=== PATIENT | female | born 1985 | race Hispanic/Latino ===

== ENCOUNTER 2017-08-05 17:28 | Emergency (ER) | payer OTHER ==
[2017-08-05] MEDS ORDERED: Insulin Regular 300 UNITS/3 ML VIAL ONE (17:52)
[2017-08-05 18:22] LABS: Anion Gap 8 mmol/L (-14-95); T. Carbon Dioxide 29.2 mmol/L (1.0-85.0); pH (Venous) 7.438 (7.35-7.45)
[2017-08-05 18:25] LABS: #Basophils 0.1 thou/uL (0.0-0.2); #Eosinphils 0.1 thou/uL (0.0-0.7); #Lymphocytes 2.9 thou/uL (1.20-3.40); #Monocytes 0.5 thou/uL (0.11-0.59); #Neutrophils 4.6 thou/uL (1.40-6.50); %Basophils 0.8 % (0.0-1.0); %Eosinophils 1.5 % (0.0-10.0); %Lymphocytes 35.2 % (21.0-51.0); Hematocrit 40.3 % (36.0-47.0); Mean Platelet Volume 9.4 fL (7.4-10.4); Red Blood Cell (RBC) Count 4.38 mill/uL (4.20-5.40); White Blood Cell (WBC) Count 8.1 thou/uL (4.8-10.8)
[2017-08-05 18:41] LABS: Anion Gap 14 mmol/L (10-20); BUN (Urea Nitrogen) 8 mg/dL (7.0-18.7); Calc. Creatinine Clearance 0 mL/min (70-130); Calcium 9.6 mg/dL (7.8-10.44); Carbon Dioxide 25 mmol/L (22-29); Chloride 100 mmol/L (98-107); Estimated GFR-MDRD 81; Magnesium 2.2 mg/dL (1.6-2.6); Phosphorus 3.9 mg/dL (2.3-4.7)
[2017-08-05 19:39] LABS: Bacteria/HPF 4+ HPF (None Seen); Bilirubin Negative (Negative); Blood, Urine Large (Negative); Glucose, Urine (Dipstick) >=1000 mg/dL (Negative); Hyaline Casts/LPF 0-3 HYALINE CAST LPF (0-3 Hyaline); Ketone, Urine Negative (Negative); Nitrite Negative (Negative); Protein, Urine (Dipstick) Negative (Neg-Trace); WBC/HPF 21-50 HPF (0-3)
[2017-08-05 19:49] LABS: RBC/HPF 0-3 HPF (0-3); Yeast-All Forms None Seen HPF (None Seen)
== END 2017-08-05 20:35 | disposition home or self-care (01) ==
LOC: ERS 17:28
DX: E11.65 Type 2 diabetes mellitus with hyperglycemia (principal); N39.0 Urinary tract infection, site not specified; E03.9 Hypothyroidism, unspecified; J45.909 Unspecified asthma, uncomplicated; F41.9 Anxiety disorder, unspecified; F32.9 Major depressive disorder, single episode, unspecified; Z79.899 Other long term (current) drug therapy; Z79.4 Long term (current) use of insulin
CPT/HCPCS: 36416; 80048; 81003; 81015; 82010; 82330; 82803; 83735; 84100; 85025; 96361; 96372; 96374; J1815

== ENCOUNTER 2018-02-26 10:05 | Outpatient (CLI) | payer OTHER ==
--- NOTE | 2018-02-26 11:54 | ULT ---
PELVIC SONOGRAM TRANSABDOMINAL AND TRANSVAGINAL IMAGING WITH DUPLEX EVALUATION: HISTORY: Pelvic pain and bleeding. FINDINGS: The urinary bladder is decompressed. Uterus has a heterogeneous echotexture and is 9.2 cm. Endometr ium 0.9 cm. No free fluid. Nabothian cysts arise from the uterine cervix. Right ovary not visualized with transabdominal or transvaginal imaging. Left ovary 2.8 cm with good color and spectral Doppler flow. IMPRESSION: No significant abnormalities are demonstrated. POS: MARIA D
== END 2018-02-26 10:06 | disposition home or self-care (01) ==
LOC: ULT 10:05
PROVIDERS: ATTEND Family Medicine
DX: N93.9 Abnormal uterine and vaginal bleeding, unspecified (principal)
CPT/HCPCS: 76856

== ENCOUNTER 2018-03-17 09:26 | Emergency (ER) | payer OTHER ==
[2018-03-17 10:12] LABS: #Basophils 0.1 thou/uL (0.0-0.2); #Eosinphils 0.2 thou/uL (0.0-0.7); #Lymphocytes 2.7 thou/uL (1.20-3.40); #Monocytes 0.4 thou/uL (0.11-0.59); #Neutrophils 4.6 thou/uL (1.40-6.50); %Basophils 0.7 % (0.0-1.0); %Lymphocytes 33.9 % (21.0-51.0); %Monocytes 5.4 % (0.0-10.0); Hemoglobin 13.4 g/dL (12.0-16.0); Mean Corpuscular HGB CONC 34.3 g/dL (32.0-36.0); Mean Corpuscular Hemoglobin 30.7 pg (27.0-31.0); Mean Corpuscular Volume 89.5 fL (78.0-98.0); Mean Platelet Volume 9.1 fL (7.4-10.4); Platelet Count 262 thou/uL (130-400); RBC Distribution Width 11.7 % (11.5-14.5); Red Blood Cell (RBC) Count 4.36 mill/uL (4.20-5.40)
[2018-03-17 10:24] LABS: Base Excess-Venous 0.7 mmol/L (0 (+/- 2.5)); Bicarbonate (HCO3v) 26.5 mmol/L (1.0-85.0); CO2 Tension (PvCO2) 45.6 mmHg (41.0-51.0); Hemoglobin - Calc 14.5 g/dL (12.0-18.0); O2 Tension (PvO2) 48.4 mmHg (35.0-45.0); Potassium 3.9 mmol/L (3.4-4.7); T. Carbon Dioxide 27.9 mmol/L (1.0-85.0); pH (Venous) 7.372 (7.35-7.45); vO2 Saturation-calc 82.3 % (94-98)
[2018-03-17 10:27] LABS: BHCG - Serum Negative (NEGATIVE); Pregs Control Background? CLEAR/WHITE (CLR/WHITE); Pregs Control Bar Appear? YES (CONTROL BAR)
[2018-03-17 10:37] LABS: ALT (SGPT) 12 U/L (8-55); AST (SGOT) 13 U/L (5-34); Albumin 3.9 g/dL (3.5-5.0); Alkaline Phosphatase 115 U/L (40-150); Anion Gap 12 mmol/L (10-20); BUN (Urea Nitrogen) 11 mg/dL (7.0-18.7); Bilirubin, Total 0.4 mg/dL (0.2-1.2); Calc. Creatinine Clearance 0 mL/min (70-130); Calcium 9.2 mg/dL (7.8-10.44); Carbon Dioxide 26 mmol/L (22-29); Chloride 102 mmol/L (98-107); Estimated GFR-MDRD 83; Globulin 3.2 g/dL (2.4-3.5); Glucose 460 mg/dL (70-105); Lipase 40 U/L (8-78); Magnesium 2.2 mg/dL (1.6-2.6); Potassium 4.1 mmol/L (3.5-5.1); Protein, Total 7.1 g/dL (6.0-8.3); Sodium 136 mmol/L (136-145)
[2018-03-17] MEDS ORDERED: Insulin Regular 300 UNITS/3 ML VIAL ONE (11:13)
[2018-03-17 12:37] LABS: Bilirubin Negative (Negative); Blood, Urine Negative (Negative); Clarity CLOUDY (Clear); Glucose, Urine (Dipstick) >=1000 mg/dL (Negative); Leukocyte Trace (Negative); Nitrite Negative (Negative); Protein, Urine (Dipstick) Negative (Neg-Trace); Specific Gravity, Urine 1.042 (1.002-1.036); Urobilinogen 0.2 mg/dL (0.2-1.0); pH, Urine 6.5 (5.0-9.0)
[2018-03-17 12:38] LABS: Bacteria/HPF 4+ HPF (None Seen); Hyaline Casts/LPF 0-3 HYALINE CAST LPF (0-3 Hyaline); Pathc Cast-AUWi Flag 0.14 (0-2.49); RBC/HPF 0-3 HPF (0-3); Squamous Epithelial 0-3 HPF (0-3)
== END 2018-03-17 12:59 | disposition home or self-care (01) ==
LOC: ERS 09:26
DX: E10.65 Type 1 diabetes mellitus with hyperglycemia (principal); N39.0 Urinary tract infection, site not specified; E11.9 Type 2 diabetes mellitus without complications; E03.9 Hypothyroidism, unspecified; J45.909 Unspecified asthma, uncomplicated; F41.9 Anxiety disorder, unspecified; F32.9 Major depressive disorder, single episode, unspecified; Z79.4 Long term (current) use of insulin; Z79.84 Long term (current) use of oral hypoglycemic drugs
CPT/HCPCS: 36416; 80053; 81003; 81015; 82010; 82330; 82803; 83690; 83735; 84703; 85025; 96361; 96374; J1815

== ENCOUNTER 2019-01-17 05:02 | Emergency (ER) | payer OTHER ==
[2019-01-17 05:43] LABS: #Basophils 0.1 thou/uL (0.0-0.2); #Eosinphils 0.1 thou/uL (0.0-0.7); #Lymphocytes 2.6 thou/uL (1.20-3.40); #Monocytes 0.5 thou/uL (0.11-0.59); #Neutrophils 4.9 thou/uL (1.40-6.50); %Basophils 0.8 % (0.0-1.0); %Eosinophils 1.6 % (0.0-10.0); %Lymphocytes 31.6 % (21.0-51.0); %Monocytes 5.7 % (0.0-10.0); %Neutrophils 60.3 % (42.0-75.0); Hemoglobin 13.2 g/dL (12.0-16.0); Mean Corpuscular HGB CONC 33.8 g/dL (32.0-36.0); Mean Corpuscular Hemoglobin 28.9 pg (27.0-31.0); Mean Corpuscular Volume 85.5 fL (78.0-98.0); Mean Platelet Volume 8.9 fL (7.4-10.4); Platelet Count 325 thou/uL (130-400); RBC Distribution Width 12.7 % (11.5-14.5); Red Blood Cell (RBC) Count 4.58 mill/uL (4.20-5.40); White Blood Cell (WBC) Count 8.2 thou/uL (4.8-10.8)
[2019-01-17 06:05] LABS: Bilirubin Negative (Negative); Blood, Urine Negative (Negative); Clarity CLEAR (Clear); Glucose, Urine (Dipstick) >=1000 mg/dL (Negative); Leukocyte Negative (Negative); Nitrite Positive (Negative); Protein, Urine (Dipstick) Negative (Neg-Trace)
[2019-01-17 06:08] LABS: Bacteria/HPF 3+ HPF (None Seen); Hyaline Casts/LPF 0-3 HYALINE CAST LPF (0-3 Hyaline); Pathc Cast-AUWi Flag 0.13 (0-2.49); RBC/HPF 0-3 HPF (0-3); Squamous Epithelial 0-3 HPF (0-3)
[2019-01-17 06:10] LABS: Specific Gravity, Urine 1.043 (1.002-1.036)
[2019-01-17 06:33] LABS: Anion Gap 15 mmol/L (10-20); BUN (Urea Nitrogen) 12 mg/dL (7.0-18.7); Calc. Creatinine Clearance 0 mL/min (70-130); Calcium 9.7 mg/dL (7.8-10.44); Carbon Dioxide 19 mmol/L (22-29); Chloride 105 mmol/L (98-107); Estimated GFR-MDRD Greater than 90; Glucose 326 mg/dL (70-105); Potassium 4.1 mmol/L (3.5-5.1); Sodium 135 mmol/L (136-145)
--- NOTE | 2019-01-17 08:01 | ULT ---
TRANSVAGINAL PELVIC ULTRASOUND WITH DOPPLER EVALUATION: Date: 01/17/19 INDICATION: Pelvic pain with history of . TECHNIQUE: Ortiz scale, color Doppler, and spectral Doppler images were obtained of the pelvis via a transvaginal approach. FINDINGS: Uterus measures 8.7 x 5.4 x 5.8 cm. Endometrial stripe measures 1.04 cm. No intrauterine gestation is demonstrated. Very mild free fluid is seen within the cul-de-sac. Right ovary measures 2.8 x 1.6 x 2.6 cm. Left ovary measures 3.2 x 1.9 x 3.8 cm. There is normal flow to the left ovary. Flow was difficult to document within the right ovary. IMPRESSION: No visible intrauterine gestation seen. Beta HCG is reported to be less than 1.2. This is consistent with a of undetermined location. Findings may reflect sequelae of early , missed a bortion, or ectopic . Continued clinical and sonographic follow-up is recommended. POS: SKYLAR
[2019-01-18 00:33] LABS: Chlamydia by PCR DETECTED (NotDetected); GC by PCR Not Detected (NotDetected)
== END 2019-01-17 07:18 | disposition home or self-care (01) ==
LOC: ERS 05:02
DX: N39.0 Urinary tract infection, site not specified (principal); R10.30 Lower abdominal pain, unspecified; E11.9 Type 2 diabetes mellitus without complications; E03.9 Hypothyroidism, unspecified; J45.909 Unspecified asthma, uncomplicated; F41.9 Anxiety disorder, unspecified; F32.9 Major depressive disorder, single episode, unspecified; F17.210 Nicotine dependence, cigarettes, uncomplicated; Z79.84 Long term (current) use of oral hypoglycemic drugs; Z79.899 Other long term (current) drug therapy
CPT/HCPCS: 36415; 76856; 80048; 81003; 81015; 84702; 85025; 86900; 86901; 87077; 87086; 87186; 87480; 87491; 87510; 87591; 87660

== ENCOUNTER 2019-03-14 22:06 | Emergency (ER) | payer OTHER ==
[2019-03-14 23:00] LABS: #Basophils 0.1 thou/uL (0.0-0.2); #Eosinphils 0.3 thou/uL (0.0-0.7); #Lymphocytes 3.1 thou/uL (1.20-3.40); #Monocytes 0.4 thou/uL (0.11-0.59); #Neutrophils 3.3 thou/uL (1.40-6.50); %Eosinophils 4.4 % (0.0-10.0); %Lymphocytes 42.8 % (21.0-51.0); %Monocytes 5.1 % (0.0-10.0); %Neutrophils 46.7 % (42.0-75.0); Hemoglobin 11.7 g/dL (12.0-16.0); Mean Corpuscular HGB CONC 33.9 g/dL (32.0-36.0); Mean Corpuscular Hemoglobin 28.7 pg (27.0-31.0); Mean Corpuscular Volume 84.7 fL (78.0-98.0); Mean Platelet Volume 9.2 fL (7.4-10.4); Platelet Count 277 thou/uL (130-400); Red Blood Cell (RBC) Count 4.07 mill/uL (4.20-5.40); White Blood Cell (WBC) Count 7.1 thou/uL (4.8-10.8)
[2019-03-14] MEDS ORDERED: cefTRIAXone\\ROCEPHIN 1 GM VIAL ONE (23:10)
[2019-03-14] MEDS ORDERED: Lidocaine 1% PF 5 ML VIAL ONE (23:10)
[2019-03-14 23:15] LABS: ALT (SGPT) 7 U/L (8-55); AST (SGOT) 7 U/L (5-34); Alkaline Phosphatase 64 U/L (40-150); Anion Gap 13 mmol/L (10-20); BUN (Urea Nitrogen) 10 mg/dL (7.0-18.7); Bilirubin, Total 0.6 mg/dL (0.2-1.2); Calc. Creatinine Clearance 0 mL/min (70-130); Calcium 8.7 mg/dL (7.8-10.44); Carbon Dioxide 22 mmol/L (22-29); Chloride 106 mmol/L (98-107); Estimated GFR-MDRD Greater than 90; Globulin 2.8 g/dL (2.4-3.5); Glucose 355 mg/dL (70-105); Potassium 3.5 mmol/L (3.5-5.1); Protein, Total 6.8 g/dL (6.0-8.3); Sodium 137 mmol/L (136-145)
[2019-03-14 23:16] LABS: Bilirubin Negative (Negative); Blood, Urine Negative (Negative); Clarity CLEAR (Clear); Glucose, Urine (Dipstick) >=1000 mg/dL (Negative); Leukocyte Negative (Negative); Nitrite Negative (Negative); Protein, Urine (Dipstick) Negative (Neg-Trace)
[2019-03-14 23:18] LABS: Specific Gravity, Urine 1.047 (1.002-1.036)
[2019-03-14 23:19] LABS: Pregnancy Test - Urine (BHCG) Negative (Negative); Pregu Control Background? CLEAR/WHITE (CLR/WHITE); Pregu Control Bar Appear? YES (CONTROL BAR); Specific Gravity 1.047 (1.002-1.036)
[2019-03-14] MEDS ORDERED: Azithromycin 250 MG TAB ONE (23:24)
== END 2019-03-14 23:45 | disposition home or self-care (01) ==
LOC: ERS 22:06
DX: R10.30 Lower abdominal pain, unspecified (principal); F41.9 Anxiety disorder, unspecified; F32.9 Major depressive disorder, single episode, unspecified; F17.210 Nicotine dependence, cigarettes, uncomplicated; J45.909 Unspecified asthma, uncomplicated; Z79.899 Other long term (current) drug therapy; Z79.84 Long term (current) use of oral hypoglycemic drugs
CPT/HCPCS: 36415; 80053; 81003; 81025; 85025; 96372; J0696; J2001

== ENCOUNTER 2019-04-17 05:23 | Emergency (ER) | payer OTHER ==
[2019-04-17] MEDS ORDERED: Acetaminophen 500 MG TAB ONE (05:51)
[2019-04-17 06:11] LABS: #Basophils 0.1 thou/uL (0.0-0.2); #Eosinphils 0.4 thou/uL (0.0-0.7); #Lymphocytes 3.6 thou/uL (1.20-3.40); #Monocytes 0.6 thou/uL (0.11-0.59); #Neutrophils 6.3 thou/uL (1.40-6.50); %Basophils 0.6 % (0.0-1.0); %Eosinophils 3.4 % (0.0-10.0); %Monocytes 5.1 % (0.0-10.0); %Neutrophils 57.9 % (42.0-75.0); Hemoglobin 11.1 g/dL (12.0-16.0); Mean Corpuscular HGB CONC 35.1 g/dL (32.0-36.0); Mean Corpuscular Hemoglobin 29.2 pg (27.0-31.0); Mean Corpuscular Volume 83.1 fL (78.0-98.0); Mean Platelet Volume 8.2 fL (7.4-10.4); Platelet Count 280 thou/uL (130-400); RBC Distribution Width 13.9 % (11.5-14.5); Red Blood Cell (RBC) Count 3.78 mill/uL (4.20-5.40); White Blood Cell (WBC) Count 10.9 thou/uL (4.8-10.8)
[2019-04-17 07:54] LABS: Bilirubin Negative (Negative); Blood, Urine 2+ (Negative); Clarity Clear (Clear); Glucose, Urine (Dipstick) Greater than 1000 mg/dL (Negative); Leukocyte Negative Leu/uL (Negative); Nitrite Negative (Negative); Protein, Urine (Dipstick) Negative (Neg-Trace); RBC/HPF 0-3 HPF (0-3); Squamous Epithelial 0-3 HPF (0-3); Urobilinogen Normal mg/dL (Less than 2); WBC/HPF 0-3 HPF (0-3)
[2019-04-17 07:57] LABS: Pregnancy Test - Urine (BHCG) POSITIVE (Negative); Pregu Control Background? CLEAR/WHITE (CLR/WHITE); Pregu Control Bar Appear? YES (CONTROL BAR); Specific Gravity 1.023 (1.002-1.036)
[2019-04-17 08:22] LABS: Bacteria/HPF Rare-Few HPF (None Seen)
--- NOTE | 2019-04-17 09:46 | ULT ---
OBSTETRIC ULTRASOUND: Date: 04/17/19 INDICATION: Cramping, vaginal bleeding, and positive . FINDINGS: There is a single live intrauterine gestation with cardiac activity noted at 113 beats/minute. pole is identified with a crown-rump length of 8 mm, giving an estimated gestational age of 6 weeks/5 days. Estimated due date based on ultrasound measurements is 12/06/2019. Uterus measures 10.5 x 6.8 x 6.7 cm. Right ovary measures 2.4 x 1.9 x 2.7 cm. Left ovary measures 4.5 x 1.2 x 2.4 cm. Normal flow is seen to both ovaries. There is mild free fluid. Along the inferior and posterior aspect of the gestational sac, there is a suspected perigestational hemorrhage measuring approximately 2.8 cm. The hemorrhage does occupy less than 25% of the circumfere nce of the gestational sac. IMPRESSION: Single live intrauterine gestation with perigestational hemorrhage. Close clinical and sonographic fo llow-up is recommended. POS: SKYLAR
== END 2019-04-17 07:45 | disposition home or self-care (01) ==
LOC: ERS 05:23
DX: O20.0 Threatened abortion (principal); O99.284 Endocrine, nutritional and metabolic diseases complicating childbirth; E78.5 Hyperlipidemia, unspecified; O24.911 Unspecified diabetes mellitus in pregnancy, first trimester; E03.9 Hypothyroidism, unspecified; O99.511 Diseases of the respiratory system complicating pregnancy, first trimester; J45.909 Unspecified asthma, uncomplicated; O99.341 Other mental disorders complicating pregnancy, first trimester; F41.9 Anxiety disorder, unspecified; F32.9 Major depressive disorder, single episode, unspecified; O99.331 Smoking (tobacco) complicating pregnancy, first trimester; F17.210 Nicotine dependence, cigarettes, uncomplicated; Z79.899 Other long term (current) drug therapy; Z79.84 Long term (current) use of oral hypoglycemic drugs; Z3A.01 Less than 8 weeks gestation of pregnancy
CPT/HCPCS: 36415; 76856; 81003; 81015; 81025; 84702; 85025; 86900; 86901

== ENCOUNTER 2019-05-05 19:22 | Inpatient (IN) | payer OTHER ==
[2019-05-05] MEDS ORDERED: Acetaminophen 325 MG TAB PO PRN (22:11)
[2019-05-05] MEDS ORDERED: Dextrose 50% Abboject 50 ML SYRINGE SLOW IVP PRN (22:11)
[2019-05-05] MEDS ORDERED: Ondansetron ODT 4 MG TAB PO PRN (22:11)
[2019-05-05] MEDS ORDERED: Senokot S 8.6-50 MG TAB PO PRN (22:11)
[2019-05-05] MEDS ORDERED: HumaLOG 300 UNITS/3 ML VIAL SC PRN ×2 (22:11)
[2019-05-05] MEDS ORDERED: Dextrose 5% in Water 1,000 ML IV PRN (22:11)
[2019-05-05 22:23] VITALS: BMI 35.7
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
[2019-05-05 23:14] LABS: #Basophils 0.1 thou/uL (0.0-0.2); #Eosinphils 0.3 thou/uL (0.0-0.7); #Monocytes 0.5 thou/uL (0.11-0.59); #Neutrophils 4.4 thou/uL (1.40-6.50); %Basophils 1.2 % (0.0-1.0); %Eosinophils 3.5 % (0.0-10.0); %Lymphocytes 36.3 % (21.0-51.0); %Monocytes 5.8 % (0.0-10.0); %Neutrophils 53.2 % (42.0-75.0); Hemoglobin 11.3 g/dL (12.0-16.0); Mean Corpuscular HGB CONC 33.5 g/dL (32.0-36.0); Mean Corpuscular Hemoglobin 28.5 pg (27.0-31.0); Mean Platelet Volume 8.5 fL (7.4-10.4); Platelet Count 307 thou/uL (130-400); RBC Distribution Width 14.4 % (11.5-14.5); Red Blood Cell (RBC) Count 3.96 mill/uL (4.20-5.40); White Blood Cell (WBC) Count 8.4 thou/uL (4.8-10.8)
[2019-05-05] MEDS ORDERED: Insulin Glargine 35 UNITS in Pre-Filled Syringe 1 EACH SC SCH (23:15)
[2019-05-05 23:33] LABS: ALT (SGPT) Less than 7 U/L (8-55); AST (SGOT) 9 U/L (5-34); Albumin 3.7 g/dL (3.5-5.0); Alkaline Phosphatase 65 U/L (40-150); Anion Gap 15 mmol/L (10-20); BUN (Urea Nitrogen) 10 mg/dL (7.0-18.7); Bilirubin, Total 0.4 mg/dL (0.2-1.2); Calc. Creatinine Clearance 171 mL/min (70-130); Calcium 8.6 mg/dL (7.8-10.44); Carbon Dioxide 16 mmol/L (22-29); Chloride 105 mmol/L (98-107); Estimated GFR-MDRD Greater than 90; Globulin 2.8 g/dL (2.4-3.5); Glucose 276 mg/dL (70-105); Potassium 3.5 mmol/L (3.5-5.1); Protein, Total 6.5 g/dL (6.0-8.3); Sodium 132 mmol/L (136-145)
[2019-05-05 23:45] LABS: HBSAg Index 0.37 S/CO (0-0.99); Hep B Surf Ag Non-Reactive S/CO (NonReactive)
[2019-05-05 23:45] LABS: Thyroid Stimulating Hormone 4.3757 uIU/mL (0.35-4.94)
[2019-05-05 23:49] LABS: Hep C IgG Ab Non-Reactive (NonReactive); Hep C Index 0.04 S/CO (0-0.79)
[2019-05-05 23:51] LABS: HIV (1/2) Antibody/Antigen Non-Reactive (NonReactive); HIV 1/2 INDEX 0.07 S/CO (<1.00); Syphilis Antibody Nonreactive (Nonreactive); Syphilis Antibody Index 0.05 S/CO (<1.00 Non-Reactive)
--- NOTE | 2019-05-06 06:56 | PDOC.FM ---
- Objective MAR Reviewed: Yes Vital Signs & Weight: Vital Signs (12 hours) Temp Pulse Resp BP Pulse Ox 05/06/19 04:00 98.1 F 99 16 106/71 99 05/06/19 00:11 98 F 105 H 18 100/66 99 05/05/19 22:11 99 05/05/19 20:31 97.9 F 116 H 16 119/77 100 Weight Weight 91.58 kg Result Diagrams: 05/05/19 22:56 05/05/19 22:56 Dx/Plan (1) Status: Acute (2) Anxiety and depression Status: Chronic (3) Diabetes mellitus type 2, insulin dependent Code(s): E11.9 - TYPE 2 DIABETES MELLITUS WITHOUT COMPLICATIONS; Z79.4 - PATCHER HELPER (CURRENT) USE OF INSULIN Status: Chronic (4) Hypothyroidism Code(s): E03.9 - HYPOTHYROIDISM, UNSPECIFIED Status: Chronic Qualifiers: Hypothyroidism type: unspecified Qualified Code(s): E03.9 - Hypothyroidism , unspecified - Plan Plan: This is a 33 yo at 9.3 by 6.5 wk US with PMH of IDDM 2, hypothyroidism, depression, asthma
[2019-05-06 07:41] LABS: Hemoglobin A1c 9.9 % (4.0-6.0)
[2019-05-06] MEDS ORDERED: HumaLOG 300 UNITS/3 ML VIAL SC SCH ×3 (08:00→17:00)
[2019-05-06] MEDS ORDERED: Famotidine 20 MG TAB PO SCH (09:00)
--- NOTE | 2019-05-06 09:33 | ULT ---
Exam: Pelvic ultrasound HISTORY: Uncontrolled blood sugar the patient with positive . COMPARISON: 04/17/2019 TECHNIQUE: Multiple grayscale and color Doppler images were obtained in a transabdominal and transvag inal pelvic ultrasound. Spectral analysis of the Doppler waveforms of the ovaries were performed. FINDINGS: As noted on the prior examination, there is a fluid collection in the endometrial canal which contain s a pole. The crown-rump length measures 1.97 cm corresponding to gestational age by ultrasound of 8 weeks and 4 days. There has been interval growth since prior examination where the cr own-rump length measured 0.7 cm corresponding to gestational age of 6 weeks and 4 days. Cardiac Doppler was performed, but heart tones are unable to be detected. However, this may be a factor of continuous patient movement and inability of the patient to remain stationary to obtain adequate evaluation of heart tones. There is a small curvilinear subchorionic hypoechoic area measuring 2.4 cm x 0.4 cm likely due to a s mall subchorionic hemorrhage. No free fluid is present. RIGHT OVARY: Normal flow, without focal mass. LEFT OVARY: Normal flow, without focal mass. IMPRESSION: 1. Single intrauterine gestation with gestational age by measurement of the crown-rump length of 8 we eks and 4 days. As noted above, heart tones were unable to be detected. This may be a factor of patient's inability to remain stationary due to current clinical condition limiting adequate evalu ation of heart tones. Short interval follow-up is recommended in an attempt to obtain heart tones. 2. Small subchorionic hemorrhage. Continued follow-up is recommended. 3. Above findings were discussed with Becky, nurse on the hospital floor on 05/06/2019 at 0914 kristina rs. Short interval follow-up exam is recommended in an attempt to obtain heart tones if the patient is able to remain stationary for adequate evaluation.
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
--- NOTE | 2019-05-06 10:43 | ULT ---
Exam: Limited pelvic ultrasound HISTORY: Unable to detect heart tones on prior ultrasound. This is a follow-up examination. COMPARISON: Study obtained on 05/06/2019 at 0800 hours. TECHNIQUE: Endovaginal sonographic images of the pelvis are obtained. FINDINGS: As noted on the recent exam obtained on today's date, there is a fluid collection within the endometr ial canal which contains both a pole and a yolk sac. Cardiac Doppler was performed, but no heart tones are detected based on transvaginal imaging. IMPRESSION: heart tones are unable to be detected within the pole on transvaginal imaging suggesting demise. Findings were discussed with Becky, nurse in charge of the patient's hospital care on the hospital floor on 05/06/2019 at 1041 hours.
[2019-05-06] MEDS ORDERED: Albuterol Sulfate 1.25 MG/3 ML NEB NEB PRN (10:45)
[2019-05-06 14:03] LABS: Cardiac Risk 3.5 (Less than 4.5)
[2019-05-06 16:03] VITALS: BP 102/69; TEMP 98.3
[2019-05-06] MEDS ORDERED: Insulin Glargine 35 UNITS in Pre-Filled Syringe 1 EACH SC SCH (21:00)
[2019-05-06] MEDS ORDERED: Insulin Glargine 45 UNITS in Pre-Filled Syringe 1 EACH SC SCH (21:00)
[2019-05-07 00:18] LABS: Chlam.trachomatis by PCR,Urine Not Detected (NotDetected)
[2019-05-07] MEDS ORDERED: Levothyroxine 150 MCG TAB PO SCH (06:00)
[2019-05-07] MEDS ORDERED: HumaLOG 300 UNITS/3 ML VIAL SC SCH (09:00)
[2019-05-07] MEDS ORDERED: Folic Acid 1 MG TAB PO SCH (09:00)
[2019-05-07] MEDS ORDERED: Prenatal Vitamin 1 TAB PO SCH (09:00)
--- NOTE | 2019-05-07 10:58 | DIS ---
DATE OF ADMISSION: 05/05/2019 DATE OF DISCHARGE: 05/06/2019 RESIDENT: Lonnie Roberson MD. ADMITTING PHYSICIAN: Kirill Huff MD. CONSULTS: None. PROCEDURES: Transvaginal ultrasound x2 showing no heartbeat. Estimated gestational age of 8 weeks and 4 days. The radiographers were able to compare a 6 weeks and 4 day ultrasound, which they had available apparently from an ER visit. PRIMARY DIAGNOSIS: Incomplete miscarriage. SECONDARY DIAGNOSES: 1. Uncontrolled diabetes mellitus, type 2. 2. Depression. 3. Social discord. 4. Hypothyroidism. DISCHARGE MEDICATIONS: 1. Lantus 45 units nightly. 2. NovoLog 10 units at each meal. 3. Synthroid 150 mcg daily. 4. Zoloft 100 mg daily. 5. vitamin. 6. Albuterol p.r.n. HISTORY OF PRESENT ILLNESS/HOSPITAL COURSE: This is a 33-year-old female who was direct admitted from clinic for management of uncontrolled diabetes mellitus affecting . Upon admission, her glucose was found to be 276. She stated that she had not been taking her insulin for 1-2 months because "she did not have enough energy to take it. She denies any nausea, vomiting, diarrhea, or headache. She was tolerating p.o. intake. She stated she was quite depressed, because the father of the baby had recently left her when he found out that she was . She is now living alone with her kids and no job. She states that she does have safe housing. She lives at the [facility]. She states that she does have adequate food at home. She was evaluated by case management as well for whom she also stated that she had adequate food available at home. The 2 transvaginal ultrasounds were completed, another showed heart tones. The patient was told that she was having an incomplete miscarriage based on these 2 ultrasounds compared to prior ultrasound examination. The patient stated that she was not feeling ready for medication management of the miscarriages yet. She wanted to pursue expectant management and follow up in clinic on Thursday. Risks of bleeding and infection were discussed with her. She was instructed to return to the hospital or call the clinic phone number, which was given to her should she start having excessive cramping, bleeding, or fever. Patient is in agreement with this plan after going home. The patient denied suicidal ideation. She denied homicidal ideation. She stated that she was going to continue to care for the kids and that she had the willpower to do that. She stated that she would follow up in clinic on Thursday with behavioral health specialist, an appointment was made for her Thursday morning. The patient was sent home on an insulin regimen of Lantus 45 nightly as well as NovoLog 10 units at each meal. She stated that this was an easy regimen and that she would be able to handle this regimen. The importance of taking her insulin as prescribed was explained at length. The patient says that she did have a glucometer at home to check her blood sugar. She said she would follow up in clinic for further titration of her insulin as needed. DISPOSITION: Stable. DISCHARGE INSTRUCTIONS: Location: Home. Diet: Diabetic. Activity: As tolerated. FOLLOWUP: Follow up in clinic on Thursday for data transcriber appointment for evaluation of mental health and assistance with coping with miscarriage. The patient also needs to follow up on diabetic management as well as medical management of miscarriage. The possibility of D and C was discussed with the patient as well as the risks bearing in mind her multiple C-sections. Job ID: [id number] [facility]
== END 2019-05-06 18:56 | disposition home or self-care (01) | DRG 833 ==
LOC: SURG A 20:07
PROVIDERS: ADMIT Emergency Medicine; ATTEND Emergency Medicine
DX: O24.111 Pre-existing type 2 diabetes mellitus, in pregnancy, first trimester (principal); E11.65 Type 2 diabetes mellitus with hyperglycemia; O99.281 Endocrine, nutritional and metabolic diseases complicating pregnancy, first trimester; O99.341 Other mental disorders complicating pregnancy, first trimester; Z3A.09 9 weeks gestation of pregnancy; F41.9 Anxiety disorder, unspecified; F32.9 Major depressive disorder, single episode, unspecified; E03.9 Hypothyroidism, unspecified; O99.511 Diseases of the respiratory system complicating pregnancy, first trimester; J45.909 Unspecified asthma, uncomplicated; O99.211 Obesity complicating pregnancy, first trimester; E66.9 Obesity, unspecified; Z79.4 Long term (current) use of insulin
CPT/HCPCS: 36415; 36416; 76856; 80053; 80061; 83036; 84439; 84443; 84481; 84702; 85025; 86762; 86780; 86803; 86850; 86900; 86901; 87340; 87389; 87491; 87591; J1815

== ENCOUNTER 2019-05-11 20:21 | Day surgery (SDC) | payer OTHER ==
[2019-05-11 21:24] VITALS: BMI 35.6
[2019-05-11] MEDS ORDERED: Morphine 4 MG/ML VIAL SLOW IVP PRN (21:45)
[2019-05-11] MEDS ORDERED: Lactated Ringer's 1,000 ML IV SCH (22:15)
[2019-05-11 22:33] LABS: #Basophils 0.1 thou/uL (0.0-0.2); #Eosinphils 0.2 thou/uL (0.0-0.7); #Lymphocytes 3.9 thou/uL (1.20-3.40); #Monocytes 0.6 thou/uL (0.11-0.59); #Neutrophils 6.7 thou/uL (1.40-6.50); %Basophils 0.5 % (0.0-1.0); %Eosinophils 1.6 % (0.0-10.0); %Lymphocytes 33.9 % (21.0-51.0); %Monocytes 5.4 % (0.0-10.0); %Neutrophils 58.6 % (42.0-75.0); Hemoglobin 11.5 g/dL (12.0-16.0); Mean Corpuscular HGB CONC 34.7 g/dL (32.0-36.0); Mean Corpuscular Volume 83.4 fL (78.0-98.0); Mean Platelet Volume 8.1 fL (7.4-10.4); Platelet Count 346 thou/uL (130-400); RBC Distribution Width 14.4 % (11.5-14.5); Red Blood Cell (RBC) Count 3.95 mill/uL (4.20-5.40); White Blood Cell (WBC) Count 11.4 thou/uL (4.8-10.8)
[2019-05-11 22:55] LABS: ALT (SGPT) 7 U/L (8-55); AST (SGOT) 9 U/L (5-34); Albumin 4.1 g/dL (3.5-5.0); Alkaline Phosphatase 54 U/L (40-150); Anion Gap 13 mmol/L (10-20); BUN (Urea Nitrogen) 9 mg/dL (7.0-18.7); Bilirubin, Total 1.1 mg/dL (0.2-1.2); Calc. Creatinine Clearance 197 mL/min (70-130); Calcium 9.1 mg/dL (7.8-10.44); Carbon Dioxide 21 mmol/L (22-29); Chloride 104 mmol/L (98-107); Estimated GFR-MDRD Greater than 90; Globulin 2.7 g/dL (2.4-3.5); Glucose 138 mg/dL (70-105); Potassium 3.6 mmol/L (3.5-5.1); Protein, Total 6.8 g/dL (6.0-8.3); Sodium 134 mmol/L (136-145)
--- NOTE | 2019-05-11 23:19 | PDOC.FPRHP ---
- History of Present Illness Chief Complaint: abd pain History of Present Illness: Pt presents to l&d after being sent to labor and delivery from ER for evaluation of abd pain. Pt reports abd pain started earlier today and is diffuse , sharp, without localizing symptoms. Denies associated NVDC, fever, chills, vaginal bleeding, discharge. Pt was recently seen for IUP; however, imaging at that time did not identify any heart beat. ED Course: Sent to labor and delivery - Allergies/Adverse Reactions Allergies Allergy/AdvReac Type Severity Reaction Status Date / Time cefazolin sodium [From Ancef] Allergy Verified 05/11/19 21:24 zolmitriptan [From Zomig] Allergy THROAT Verified 05/11/19 21:24 SWELLING ANESTHETIC Allergy Intermediate Hives Uncoded 05/11/19 21:24 - Home Medications Medication Instructions Recorded Confirmed Type Acetaminophen [Tylenol Regular 650 mg PO Q4H PRN tab 05/06/19 Rx Strength] Albuterol Sulfate 1.25 mg NEB Q8H PRN 30 Days #90 neb 05/06/19 Rx Insulin Aspart [Novolog Flexpen] 10 units SC TID-WM 30 Days 05/06/19 Rx insuln.pen Insulin Glargine,Hum.Rec.Anlog 45 unit SQ QPM 30 Days #1 vial 05/06/19 Rx [Lantus] Levothyroxine [Synthroid] 150 mcg PO DAILY 30 Days #30 tab 05/06/19 Rx Vitamin 1 tab PO DAILY 30 Days #30 tab 05/06/19 Rx Sertraline HCl [Zoloft] 100 mg PO DAILY 30 Days #30 tab 05/06/19 Rx Ibuprofen 800 mg PO Q8HR #20 tablet 05/12/19 Rx Misoprostol [Cytotec] 200 mcg PO ONE #3 tab 05/12/19 Rx - History PMHx: DMII PSHx: None FHx: NA Social: Nonsmoker, nondrinker, denies drug use - Review of Systems General: denies: fever/chills, fatigue Eyes: denies: vision changes Respiratory: denies: cough, shortness of breath Cardiovascular: denies: chest pain Gastrointestinal: reports: abdominal pain. denies: nausea, vomiting, diarrhea, constipation, GI bleeding Genitourinary: denies: incontinence, dysuria, discharge Skin: denies: rashes Musculoskeletal: denies: pain Neurological: denies: numbness, syncope Psychological: reports: anxiety, depression - Vital signs BP: [] HR: [] RR: [] Tmax: [] Pox: []% on [] Wt: [] - Physical Exam Constitutional: NAD, awake, alert and oriented HEENT: normocephalic and atraumatic, PERRLA, EOMI, conjunctiva clear, no scleral icterus, grossly normal hearing, MMM Neck: trachea midline, no LAD Heart: RRR, normal S1/S2, no murmurs/rubs/gallops, pulses present, no edema Lungs: CTAB, no respiratory distress, good air movement, no rales/rhonchi, no wheezing Abdomen: soft, bowel sounds present, other (diffusely tender to palpation) Neurological: no focal deficit Skin: no rash/lesions, good turgor Heme/Lymphatic: no petechia Psychiatric: normal mood and affect FMR H&P: Results - Labs Result Diagrams: 05/11/19 22:26 05/11/19 22:26 Lab results: WBC 11.4 thou/uL (4.8-10.8) H 05/11/19 22:26 Hgb 11.5 g/dL (12.0-16.0) L 05/11/19 22:26 Hct 33.0 % (36.0-47.0) L 05/11/19 22:26 MCV 83.4 fL (78.0-98.0) 05/11/19 22:26 Plt Count 346 thou/uL (130-400) 05/11/19 22:26 Neutrophils % 58.6 % (42.0-75.0) 05/11/19 22:26 Sodium 134 mmol/L (136-145) L 05/11/19 22:26 Potassium 3.6 mmol/L (3.5-5.1) 05/11/19 22:26 Chloride 104 mmol/L (98-107) 05/11/19 22:26 Carbon Dioxide 21 mmol/L (22-29) L 05/11/19 22:26 BUN 9 mg/dL (7.0-18.7) 05/11/19 22:26 Creatinine 0.58 mg/dL (0.6-1.1) L 05/11/19 22:26 Glucose 138 mg/dL (70-105) H 05/11/19 22: Calcium 9.1 mg/dL (7.8-10.44) 05/11/19 22: Total Bilirubin 1.1 mg/dL (0.2-1.2) 05/11/19 22:26 AST 9 U/L (5-34) 05/11/19 22: ALT 7 U/L (8-55) L 05/11/19 22: Alkaline Phosphatase 54 U/L (40-150) 05/11/19 22: Serum Total Protein 6.8 g/dL (6.0-8.3) 05/11/19: Albumin 4.1 g/dL (3.5-5.0) 05/11/19 22: - Radiology Interpretation Other Status: report reviewed by me ( pole measuring 8.4 week w/o heart tones, unchanged from prior exam) FMR H&P: A/P - Problem List (1) Missed Status: Acute Code(s): O02.1 - MISSED - Plan 1) Missed - pt has not passed products of conception - afebrile and labs w/in normal limits - pain resolved after re-assessment - will rx cytotec for missed ab and ibuprofen for pain control - dc to home with instruction to f/u with [facility] closely. Disposition/LOS: Stable. Pt discharged to home. FMR H&P: Upper Level - Plan Date/Time: 05/11/19 0909 I, [], have evaluated this patient and agree with findings/plan as outlined by internet sales consultant resident. Pertinent changes/additions are listed here. Addendum - Attending - Attending Attestation Date/Time: 05/12/19 1648 I personally evaluated the patient and discussed the management with Dr. Jhaveri on 05/11. I agree with the History, Examination, Assessment and Plan documented above with any addition or exceptions noted below. Patient presented extremely tearfully to the ER and was sent to [facility] d/t a miscommunication about EDC. I am very familiar with her from our clinic. She has had a hard time accepting the dx of missed AB, and has had some cramping over the last 12 hours. She denies fever, chills, or bleeding. BS+, NTTP, no guarding/rigidity/rovsings/psoas/etc. Repeat sono with no CA and no motion artifact on this exam again confirms diagnosis. We again discussed options and she elects for pharmacologic management. I have personally discussed return precautions for excessive bleeding or fever. I have also discussed D&C and that this may be necessary if pharmacologic management fails.
--- NOTE | 2019-05-12 00:03 | ULT ---
EXAM: US Pelvic Limited DATE: 05/11/2019 9:56 PM INDICATION: Follow-up demise and pelvic pain COMPARISON: Prior exam dated May 06, 2019 FINDING: Again seen is an intrauterine gestational sac with associated pole. There are no asso ciated heart tones demonstrated with a pole. The crown-rump length is 2.01 cm giving an estimated gestational age of 8 weeks 4 days. The clinical dates was 10 weeks and 1 day with estimated 12/06/2019. IMPRESSION:No demonstratable heart tones are seen with a pole consistent with demis e.
--- NOTE | 2019-05-12 00:39 | PDOC.EVN ---
Event Note - Event Note Event Note: Labs and vitals WNL. TV US confirms IU demise. Plan for DC to home and f/ u with [facility] by Thursday. Rx cytotec for missed AB and ibuprofen for pain control. Return precautions provided and med instructions provided. Addendum - Attending - Attending Attestation Date/Time: 05/12/19 0159 I personally evaluated the patient and discussed the management with Dr. Sampson. I agree with the History, Examination, Assessment and Plan documented above with any addition or exceptions noted below.
== END 2019-05-12 00:45 | disposition home or self-care (01) ==
LOC: L&D/OP 20:21
PROVIDERS: ATTEND Family Medicine
DX: O02.1 Missed abortion (principal); Z79.4 Long term (current) use of insulin; Z79.899 Other long term (current) drug therapy; Z88.8 Allergy status to other drugs, medicaments and biological substances
CPT/HCPCS: 36415; 36416; 76857; 80053; 85025; 96360; 96375; 99282; J2270

== ENCOUNTER 2019-05-22 16:20 | Observation (INO) | payer OTHER ==
[2019-05-22] MEDS ORDERED: Morphine 4 MG/ML VIAL ONE (16:43)
[2019-05-22] MEDS ORDERED: Ondansetron PF 4 MG/2 ML Vial ONE (16:43)
[2019-05-22 16:49] LABS: #Basophils 0.1 thou/uL (0.0-0.2); #Eosinphils 0.2 thou/uL (0.0-0.7); #Lymphocytes 4.4 thou/uL (1.20-3.40); #Monocytes 0.7 thou/uL (0.11-0.59); #Neutrophils 8.7 thou/uL (1.40-6.50); %Basophils 0.8 % (0.0-1.0); %Eosinophils 1.8 % (0.0-10.0); %Lymphocytes 31.2 % (21.0-51.0); %Monocytes 4.6 % (0.0-10.0); %Neutrophils 61.6 % (42.0-75.0); Hemoglobin 12.6 g/dL (12.0-16.0); Mean Corpuscular HGB CONC 35.1 g/dL (32.0-36.0); Mean Corpuscular Hemoglobin 28.8 pg (27.0-31.0); Mean Corpuscular Volume 81.9 fL (78.0-98.0); Mean Platelet Volume 9.1 fL (7.4-10.4); Platelet Count 314 thou/uL (130-400); RBC Distribution Width 14.4 % (11.5-14.5); Red Blood Cell (RBC) Count 4.37 mill/uL (4.20-5.40); White Blood Cell (WBC) Count 14.1 thou/uL (4.8-10.8)
[2019-05-22 17:08] LABS: ALT (SGPT) 9 U/L (8-55); AST (SGOT) 10 U/L (5-34); Albumin 4.2 g/dL (3.5-5.0); Alkaline Phosphatase 50 U/L (40-150); Anion Gap 16 mmol/L (10-20); BUN (Urea Nitrogen) 13 mg/dL (7.0-18.7); Bilirubin, Total 0.7 mg/dL (0.2-1.2); Calc. Creatinine Clearance 0 mL/min (70-130); Calcium 9.7 mg/dL (7.8-10.44); Carbon Dioxide 17 mmol/L (22-29); Chloride 105 mmol/L (98-107); Estimated GFR-MDRD 64; Globulin 2.8 g/dL (2.4-3.5); Glucose 416 mg/dL (70-105); Potassium 3.9 mmol/L (3.5-5.1); Sodium 134 mmol/L (136-145)
[2019-05-22] MEDS ORDERED: Fentanyl 100 MCG/2 ML VIAL ONE ×4 (17:32→23:48)
--- NOTE | 2019-05-22 18:45 | ULT ---
TRANSABDOMINAL AND TRANSVAGINAL PELVIC ULTRASOUND WITH GRAYSCALE, COLOR FLOW, AND SPECTRAL DOPPLER IM AGING: History: 33-year-old female with spontaneous miscarriage. Patient is actively bleeding. FINDINGS: The uterus measures 11.5 x 5.1 x 7.1 cm without focal mass or endometrial fluid. The endometrium rekha ures 1.4 cm in thickness. The right ovary is not visualized. The left ovary measures 2.5 x 1.5 x 1.5 cm. Flow is demonstrated to the left ovary. No free fluid is seen. No adnexal masses are identified. Exam is limited due to patient refusing completion of the exam. IMPRESSION: No significant abnormalities are seen. POS: [facility]
--- NOTE | 2019-05-22 19:44 | CT ---
CT BRAIN WITHOUT CONTRAST: History: Lightheadedness, anxiety attack, fall in the shower. No loss of consciousness from fall. FINDINGS: Comparison made with exam of 06-27-15. No evidence of acute infarct, hemorrhage, midline shift, or abnormal extraaxial fluid collections are seen. The ventricular size is normal and the basilar cisterns are patent. The bony calvarium is inta ct. The visualized paranasal sinuses and mastoid air cells are well aerated. IMPRESSION: No CT evidence of acute intracranial process. POS: [facility]
--- NOTE | 2019-05-22 19:52 | CT ---
CT CERVICAL SPINE WITH CORONAL AND SAGITTAL REFORMATIONS: History: Fall, neck pain. FINDINGS/IMPRESSION: Cervical lordosis is maintained. No acute fracture, subluxation or facet malalignment is seen. POS: [facility]
[2019-05-22] MEDS ORDERED: Lorazepam 2 MG/ML VIAL ONE (21:00)
[2019-05-22] MEDS ORDERED: Ketorolac Tromethamine 30 MG/ML VIAL ONE (21:00)
[2019-05-22] MEDS ORDERED: Midazolam HCl 2 mg/2 ml Vial ONE (23:48)
[2019-05-22] MEDS ORDERED: HYDROmorphone 0.5 MG/0.5 ML SYRINGE ONE (23:48)
[2019-05-22] MEDS ORDERED: Promethazine HCl 25 MG/ML VIAL ONE (23:49)
[2019-05-22] MEDS ORDERED: Dextrose 5% in Water 1,000 ML IV PRN (23:57)
[2019-05-22] MEDS ORDERED: Dextrose 50% Abboject 50 ML SYRINGE SLOW IVP PRN (23:57)
[2019-05-23] MEDS ORDERED: Silver Nitrate Application 1 EACH ONE (00:32)
[2019-05-23] MEDS ORDERED: Ondansetron HCl/PF 4 MG/2 ML Vial IVP PRN (00:47)
[2019-05-23] MEDS ORDERED: Promethazine HCl 25 MG/ML VIAL SLOW IVP PRN (00:47)
[2019-05-23] MEDS ORDERED: Promethazine HCl 25 MG/ML VIAL IM PRN (00:47)
[2019-05-23] MEDS ORDERED: Ondansetron PF 4 MG/2 ML Vial IVP PRN (00:50)
[2019-05-23] MEDS ORDERED: traMADol HCl 50 MG TAB PO PRN (00:54)
[2019-05-23] MEDS ORDERED: Ibuprofen 600 MG TAB PO PRN (00:56)
[2019-05-23] MEDS ORDERED: Lactated Ringer's 1,000 ML IV SCH (01:00)
[2019-05-23 05:20] LABS: Hemoglobin 8.7 g/dL (12.0-16.0); Mean Corpuscular HGB CONC 34.1 g/dL (32.0-36.0); Mean Corpuscular Hemoglobin 29.2 pg (27.0-31.0); Mean Corpuscular Volume 85.5 fL (78.0-98.0); Mean Platelet Volume 8.9 fL (7.4-10.4); Platelet Count 218 thou/uL (130-400); Red Blood Cell (RBC) Count 2.98 mill/uL (4.20-5.40); White Blood Cell (WBC) Count 12.1 thou/uL (4.8-10.8)
[2019-05-23] MEDS ORDERED: Levothyroxine 150 MCG TAB PO SCH (06:00)
[2019-05-23] MEDS ORDERED: Lidocaine 1% PF 5 ML VIAL ONE (07:47)
[2019-05-23] MEDS ORDERED: Ondansetron PF 4 MG/2 ML Vial ONE (07:47)
[2019-05-23] MEDS ORDERED: PROPOFOL 200 MG/20 ML VIAL ONE (07:47)
[2019-05-23] MEDS ORDERED: PHENYLEPHRINE-NS 100 MCG/ML 10 ML SYRINGE ONE (07:47)
[2019-05-23] MEDS ORDERED: Ketorolac Tromethamine 30 MG/ML VIAL ONE (07:47)
[2019-05-23] MEDS ORDERED: metFORMIN 500 MG TAB PO SCH (08:00)
--- NOTE | 2019-05-23 08:08 | PDOC.FM ---
- Subjective Subjective: Consult Progress Note Patient sleeping this morning. She did not want to answer many questions. She reported tolerating PO intake. Denies N/V, bleeding. Reports mild headache that began this am. - Objective Vital Signs & Weight: Vital Signs (12 hours) Temp Pulse Resp BP BP Pulse Ox 05/23/19 06:30 98.3 F 91 18 111/70 100 05/23/19 05:30 94 16 102/57 L 97 05/23/19 04:30 92 16 110/66 98 05/23/19 03:30 100 16 119/76 98 05/23/19 03:00 106 H 18 98/59 L 99 05/23/19 02:25 98 102/59 L 98 05/23/19 01:55 97.7 F 91 18 128/82 99 Weight Weight 79 kg Result Diagrams: 05/23/19 04:34 05/22/19 16:37 Phys Exam - Physical Examination Constitutional: NAD Respiratory: no wheezing, clear to auscultation bilateral Cardiovascular: RRR Gastrointestinal: soft, no distention, positive bowel sounds Musculoskeletal: no edema Neurological: non-focal Skin: normal turgor Dx/Plan (1) Hyperglycemia due to type 2 diabetes mellitus Code(s): E11.65 - TYPE 2 DIABETES MELLITUS WITH HYPERGLYCEMIA Status: Acute Qualifiers: Diabetes mellitus detention insulin use: with detention use Qualified Code( s): E11.65 - Type 2 diabetes mellitus with hyperglycemia; Z79.4 - retirement ( current) use of insulin - Plan Plan: Patient's BG in 200s this morning. Home metformin and insulin regimen restarted. Patient encouraged to follow up in outpatient setting for continued diabetic control. Discharge per primary DIRECTOR OF MEDICAL SERVICES. From a glucose standpoint, patient is stable for outpatient management. Addendum - Attending - Attending Attestation Date/Time: 05/23/19 9594 I personally evaluated the patient and discussed the management with Dr. Rodrigez I agree with the History, Examination, Assessment and Plan documented above with any addition or exceptions noted below - Patient sleeping. Reports some cramping. Afebrile VSS. A/P: 1) Type 2 DM- poorly controlled- BG improved since admission. Home medication regimen restarted. Stable for d/c home and follow-up in clinic in 1-2 weeks.
[2019-05-23] MEDS ORDERED: Insulin Glargine 45 UNITS in Pre-Filled Syringe 1 EACH SC SCH (09:00)
[2019-05-23 11:48] VITALS: BP 128/53; TEMP 98.4
[2019-05-23] MEDS: HumaLOG 300 UNITS/3 ML VIAL SC SCH ×2 (12:56→12:57)
--- NOTE | 2019-05-23 14:34 | CON ---
DATE OF CONSULTATION: CONSULTING PHYSICIAN: Marek Sarabia MD REASON FOR CONSULTATION: Medical management of hyperglycemia. HISTORY OF PRESENT ILLNESS: This is a 33-year-old, G5, P3-1-1-3, who presented to the emergency room after a known incomplete that had been treated with misoprostol on 05/12/2019. She reported after that time she had some spotting, but then earlier this evening began having significant vaginal bleeding with large blood clots she describes the size of an orange. The patient reports that she got anxious regarding this and had a panic attack in the shower and fell during this time. The patient reports feeling her heart racing. Denies any shortness of breath, vision changes, or dizziness. The patient does endorse significant cramping abdominal pain in her lower abdomen. The patient reports that for the last couple of days she has been feeling depressed due to this miscarriage and so she has not been taking care of herself including not taking any of her diabetic medications or other medications. She reports that she has been drinking a lot more in the last couple of days. REVIEW OF SYSTEMS: GENERAL: Denies fever, or chills. HEENT: Denies vision changes, or sore throat. CARDIOVASCULAR: Denies chest pain. Reports palpitations. RESPIRATORY: Denies shortness breath, cough. Endorses abdominal pain. Denies vomiting, or diarrhea. : Reports vaginal bleeding. Denies dysuria. DERMATOLOGIC: Denies rashes, or lesions. PSYCHIATRIC: Endorses anxiety and depression. NEUROLOGIC: Denies syncope or seizure. PAST MEDICAL HISTORY: 1. Diabetes mellitus type 2. 2. Anxiety. 3. Depression. 4. Hypothyroidism. PAST SURGICAL HISTORY: 1. section x3. 2. Skin graft. MEDICATIONS: 1. Metformin 1000 mg p.o. b.i.d. 2. Lantus 45 units subcu at bedtime. 3. NovoLog 10 units subcu t.i.d. with meals. 4. Synthroid 150 mcg p.o. daily. ALLERGIES: ANCEF AND ZOLMITRIPTAN. FAMILY HISTORY: Mother with diabetes, hep C, liver cirrhosis. Maternal grandfather with asthma and diabetes. Maternal grandmother with hypertension. Brother with bone cancer. SOCIAL HISTORY: The patient has 3 living children and denies any tobacco or drug use. She does report occasional alcohol use with recent binge drinking. PHYSICAL EXAMINATION: VITAL SIGNS: Blood pressure 107/76, pulse 102, respiratory rate 16, temperature 97.5, O2 saturation 96% on room air. Weight 79 kg. GENERAL: Alert, oriented, resting comfortably, in no acute distress. HEENT: Moist mucous membranes. Extraocular muscles intact. No scleral icterus or conjunctival injection. NECK: Supple. No lymphadenopathy. CARDIOVASCULAR: Tachycardic, regular rhythm. No murmurs. RESPIRATORY: Clear to auscultation bilaterally. No wheezes. No use of accessory muscles of respiration. ABDOMEN: Soft, nondistended, mildly tender in the suprapubic region. No rebound or guarding. : Cervix with open os and blood clots and products coming through the os in the vaginal canal. EXTREMITIES: No cyanosis or edema. NEUROLOGIC: Moves all 4 extremities. Cranial nerves 2 through 12 grossly intact. SKIN: No rashes or lesions. LABORATORY DATA: WBC 14.1, hemoglobin 12.6, hematocrit 35.8, platelet count 314. Sodium 134, potassium 3.9, chloride 105, CO2 17, BUN 13, creatinine 0.99, GFR 64 , glucose 416, repeat glucose 281, total bilirubin 0.7, AST 10, ALT 9, alkaline phosphatase 50, total beta-hCG 1236.6. IMAGING: Brain CT showed no CT evidence of acute intracranial process. Cervical spine CT showed cervical lordosis is maintained. No acute fracture or malalignment. Pelvic ultrasound showed endometrium measuring 1.4 cm in thickness. Exam was limited due to the patient refusing completion of exam due to pain. ASSESSMENT AND PLAN: 1. Incomplete . The patient is being admitted by Dr. Sarabia and taken to the OR for D and C tonight. We will follow his recs. 2. Uncontrolled diabetes mellitus type 2. The patient has not been taking her medications at home. We will restart her home metformin, Lantus and NovoLog for better diabetes control. Counseled on compliance. We will have the patient on a consistent carb diet while here after her D and C and we will have her follow closely with Dr. Mcintyre, her primary care physician. 3. Anxiety and depression. The patient reports these have acutely worsened after the miscarriage, but she does have an appointment with her counselor on Thursday. She reports being on medication for anxiety, but she is not sure what the name is. We will attempt to obtain full medication records. 4. Hypothyroidism. We will continue home Synthroid. This patient was seen and evaluated with Dr. Santa Powers. Thank you for allowing us to participate in the care of this patient. Attending Addendum: Pt seen and examined with Dr. Arriaga. I discussed the plan of care and agree with management as above. Santa Powers DO Job ID: [id number] MTDD
--- NOTE | 2019-05-23 14:40 | PDOC.EVN ---
Event Note - Event Note Event Note: OK per Family Practice to go home on her diabetic regimen. No reported complaints. VSS AF Plan: DC home. F/u at [facility] in 2 weeks. Precautions given.
--- NOTE | 2019-05-24 00:58 | DIS ---
DATE OF ADMISSION: 05/23/2019 DATE OF DISCHARGE: 05/23/2019 PRIMARY CARE PROVIDER: [facility]. HOSPITAL COURSE: The patient is a 33-year-old female admitted to the hospital for vaginal bleeding and symptomatic anemia and suspected incomplete AB. She was taken to the operating room for a suction D and C and admitted to the hospital for observation due to uncontrolled blood sugars with her presenting blood sugar of 416. Her primary team, the [facility], have agreed to manage her other medical problems and placed on her home medications. Her most recent blood sugar is 245. The patient reports this morning that her bleeding has much decreased and her pain is a lot better. She does admit that she has not taken her medications over the weekend as she went out with her girlfriends to drink alcohol and felt like insulin would not be safe for her to take. The patient reports other than that she has been attempting to get better control of her blood sugars than she has in the past. PHYSICAL EXAMINATION: VITAL SIGNS: This morning, blood pressure 101/67, temperature 98.1, pulse of 86, respiratory rate of 20, saturating 100% on room air. GENERAL: She appears to be in no acute distress. She is alert and oriented, cooperative and pleasant to interact with. HEAD: Normocephalic and atraumatic. ABDOMEN: Soft and nontender. EXTREMITIES: Nontender and nonedematous. LABORATORY DATA: Most recent hemoglobin and hematocrit are 8.7 and 25.5 down from 12.6 and 35.8 upon admission, platelets of 218,000. Again, most recent blood sugar is 245. DISCHARGE INSTRUCTIONS: The patient has been given instructions to followup with her primary team, the [facility], in 1 to 2 weeks for her miscarriage and postoperative evaluation. She also has been told that she will be here in the hospital until Family Medicine has evaluated her and believes it is safe for her to be discharged home from medical standpoint. We have stressed the importance that the patient continue making every effort possible to maintain good blood sugar control as this will speed up her healing and reduce her risk for infection and minimize her risk for future losses. Again, discharge is tentative to Family Medicine given they are okay. Job ID: [id number]
--- NOTE | 2019-05-24 11:53 | OP ---
DATE OF PROCEDURE: 05/23/2019 PREOPERATIVE DIAGNOSIS: Incomplete . POSTOPERATIVE DIAGNOSIS: Incomplete . PROCEDURES: Suction dilatation and curettage. CO-SURGEON: Rosalie Gastelum MD, PGY2 ATTENDING: Dr Sarabia ANESTHESIA: General. COUNTS: Correct. CONDITION: Stable. COMPLICATIONS: None. FINDINGS: Uterus sounded to 11 cm. Products of conception versus clot 2 cm at the external os. ESTIMATED BLOOD LOSS: 100 cc. URINE OUTPUT: 50 cc. SPECIMEN: Products of conception and endometrial curettage. DESCRIPTION OF PROCEDURE: Both verbal and written consent were obtained. The patient was taken to the OR where general anesthesia was obtained without difficulty. The patient was placed in dorsal lithotomy position in [facility]-cane stirrups. The bladder was drained, and a surgical speculum was placed to visualize the cervix. The anterior lip was then grasped with a single-tooth tenaculum, and a 2 cm clot was visualized at the external os. This was removed with ring forceps. The cervix was already dilated; therefore, no cervical dilation was needed. The uterus was sounded to 11 cm. A 7-Cameroonian suction curette was placed without difficulty and suctioned to 35 cm of water with moderate products of conception removed. Sharp curettage of the uterine cavity was then performed until a gritty texture was felt on all surfaces. The specimen was collected and sent to Pathology. The 7-Cameroonian suction curette was then reinserted and suctioned until clear of uterine products of conception. The tenaculum was removed, and pressure was applied for hemostasis. The speculum was then removed. The patient tolerated the procedure well. Counts were correct. The patient was extubated and taken to the recovery room in good condition. I was present, scrubbed, performed and supervised the above procedure and agree with the above documentation Job ID: [id number] MTDD
== END 2019-05-23 16:25 | disposition home or self-care (01) ==
LOC: ERS 16:20 → 3SE 05-23 00:04
PROVIDERS: ADMIT Obstetrics & Gynecology; ATTEND Obstetrics & Gynecology
PROC: 10D18ZZ Extraction of Products of Conception, Retained, Via Natural or Artificial Opening Endoscopic (ICD-10-PCS; principal; 2019-05-23)
DX: O03.4 Incomplete spontaneous abortion without complication (principal); D64.9 Anemia, unspecified; E03.9 Hypothyroidism, unspecified; E11.9 Type 2 diabetes mellitus without complications; F17.210 Nicotine dependence, cigarettes, uncomplicated; E78.00 Pure hypercholesterolemia, unspecified; E78.5 Hyperlipidemia, unspecified; F41.9 Anxiety disorder, unspecified; F32.9 Major depressive disorder, single episode, unspecified; Z79.84 Long term (current) use of oral hypoglycemic drugs; Z79.899 Other long term (current) drug therapy; Z88.1 Allergy status to other antibiotic agents; Z88.8 Allergy status to other drugs, medicaments and biological substances
CPT/HCPCS: 36415; 36416; 70450; 72125; 76856; 80053; 84702; 85025; 85027; 86850; 86900; 86901; 88305; 93976; 96360; 96361; 96374; 96375; 96376; G0378; J1170; J1885; J2001; J2060; J2250; J2270; J2405; J2550; J2704; J3010

== ENCOUNTER 2019-12-12 20:29 | Emergency (ER) | payer OTHER ==
[2019-12-12] MEDS ORDERED: Cefepime 2 GM VIAL ONE (21:10)
[2019-12-12] MEDS ORDERED: Piperacillin/Tazobactam 3.375 GM VIAL ONE (21:11)
[2019-12-12 21:21] LABS: #Basophils 0.1 thou/uL (0.0-0.2); #Eosinphils 0.3 thou/uL (0.0-0.7); #Lymphocytes 3.6 thou/uL (1.20-3.40); #Monocytes 0.6 thou/uL (0.11-0.59); #Neutrophils 3.8 thou/uL (1.40-6.50); %Basophils 0.7 % (0.0-1.0); %Lymphocytes 42.9 % (21.0-51.0); %Monocytes 6.7 % (0.0-10.0); %Neutrophils 45.7 % (42.0-75.0); Hemoglobin 8.8 g/dL (12.0-16.0); Mean Corpuscular HGB CONC 31.8 g/dL (32.0-36.0); Mean Corpuscular Hemoglobin 23.2 pg (27.0-31.0); Mean Corpuscular Volume 72.8 fL (78.0-98.0); Mean Platelet Volume 9.1 fL (7.4-10.4); Platelet Count 306 thou/uL (130-400); RBC Distribution Width 16.6 % (11.5-14.5); Red Blood Cell (RBC) Count 3.78 mill/uL (4.20-5.40); White Blood Cell (WBC) Count 8.3 thou/uL (4.8-10.8)
[2019-12-12] MEDS ORDERED: Vancomycin 1 GM/200 ML BAG ONE (21:27)
[2019-12-12] MEDS ORDERED: methylPREDNISolone Sod Succ/PF 125 MG/2 ML VIAL ONE (21:27)
--- NOTE | 2019-12-12 21:31 | RAD ---
RADIOGRAPH CHEST 1 VIEW: DATE: 12/12/2019 HISTORY: 34-year-old female with nonproductive cough and chest pain with dyspnea FINDINGS: The visualized lung lr are clear. The cardiomediastinal silhouette and hilar shadows are normal. The lateral costophrenic angles are sharp. The osseous structures appear normal. There is no pneumothorax. IMPRESSION: Negative.
[2019-12-12 21:42] LABS: ALT (SGPT) 7 U/L (8-55); AST (SGOT) 8 U/L (5-34); Albumin 3.9 g/dL (3.5-5.0); Alkaline Phosphatase 69 U/L (40-110); Anion Gap 11 mmol/L (10-20); BUN (Urea Nitrogen) 7 mg/dL (7.0-18.7); Bilirubin, Total 0.5 mg/dL (0.2-1.2); Calc. Creatinine Clearance 0 mL/min (70-130); Calcium 8.3 mg/dL (7.8-10.44); Carbon Dioxide 21 mmol/L (22-29); Chloride 107 mmol/L (98-107); Estimated GFR-MDRD Greater than 90; Globulin 2.8 g/dL (2.4-3.5); Glucose 278 mg/dL (70-105); Protein, Total 6.7 g/dL (6.0-8.3); Sodium 136 mmol/L (136-145)
[2019-12-12 21:55] LABS: Potassium 2.9 mmol/L (3.5-5.1)
[2019-12-12 21:58] LABS: Bilirubin Negative (Negative); Blood, Urine Negative (Negative); Clarity Clear (Clear); Glucose, Urine (Dipstick) Greater than 1000 mg/dL (Negative); Leukocyte Negative Leu/uL (Negative); Nitrite Negative (Negative); Protein, Urine (Dipstick) Negative (Neg-Trace)
[2019-12-12] MEDS ORDERED: Potassium Chloride 20 MEQ TAB ONE (22:02)
[2019-12-12] MEDS ORDERED: Ketorolac Tromethamine 30 MG/ML VIAL ONE (22:02)
--- NOTE | 2019-12-15 11:03 | EKG ---
Test Reason : Blood Pressure : / mmHG Vent. Rate : 108 BPM Atrial Rate : 108 BPM P-R Int : 160 ms QRS Dur : 074 ms QT Int : 378 ms P-R-T Axes : 053 015 062 degrees QTc Int : 506 ms Sinus tachycardia Otherwise normal ECG Confirmed by JONELLE MOONEY MD ([id number]), editorial clerk PUJA BHANDARI ([id number]) on 12/15/2019 11:03:07 AM Referred By: NASRA MOONEY Confirmed By:JONELLE MOONEY MD
== END 2019-12-13 00:05 | disposition home or self-care (01) ==
LOC: ERS 20:29
DX: J45.909 Unspecified asthma, uncomplicated (principal); E78.5 Hyperlipidemia, unspecified; E78.00 Pure hypercholesterolemia, unspecified; E11.9 Type 2 diabetes mellitus without complications; E03.9 Hypothyroidism, unspecified; F41.9 Anxiety disorder, unspecified; F32.9 Major depressive disorder, single episode, unspecified
CPT/HCPCS: 36415; 71045; 80053; 81003; 83605; 85025; 87040; 87077; 87086; 87186; 87804; 93005; 96361; 96365; 96375; J0692; J1885; J2543; J2930; J3370; U0001

== ENCOUNTER 2020-08-09 10:45 | Inpatient (IN) | payer OTHER ==
[2020-08-09 16:28] VITALS: BMI 36.5
[2020-08-09] MEDS ORDERED: Dextrose 5% in Water 1,000 ML IV PRN (16:36)
[2020-08-09] MEDS ORDERED: Dextrose 50% Abboject 50 ML SYRINGE SLOW IVP PRN (16:36)
[2020-08-09] MEDS ORDERED: Calcium Carbonate 500 MG ChewTAB PO PRN (16:36)
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
[2020-08-09] MEDS ORDERED: Famotidine 20 MG TAB PO PRN (16:58)
[2020-08-09] MEDS ORDERED: Senokot 8.6 MG TAB PO PRN (16:58)
[2020-08-09] MEDS ORDERED: Albuterol Sulfate 2.5 mg/3 ml Neb NEB PRN (16:58)
[2020-08-09] MEDS: HumaLOG 300 UNITS/3 ML VIAL SC SCH (17:30)
[2020-08-09] MEDS: metFORMIN 500 MG TAB PO SCH (18:09)
[2020-08-09 18:26] LABS: Reticulocyte Count 1.8 % (0.5-1.5)
[2020-08-09 18:28] LABS: #Basophils 0.1 thou/uL (0.0-0.2); #Eosinphils 0.4 thou/uL (0.0-0.7); #Lymphocytes 2.7 thou/uL (1.20-3.40); #Monocytes 0.6 thou/uL (0.11-0.59); #Neutrophils 7.8 thou/uL (1.40-6.50); %Basophils 0.5 % (0.0-1.0); %Eosinophils 3.1 % (0.0-10.0); %Lymphocytes 23.7 % (21.0-51.0); %Monocytes 5.5 % (0.0-10.0); %Neutrophils 67.2 % (42.0-75.0); Hemoglobin 10.3 g/dL (12.0-16.0); Mean Corpuscular HGB CONC 33.6 g/dL (32.0-36.0); Mean Corpuscular Hemoglobin 26.8 pg (27.0-31.0); Mean Corpuscular Volume 79.7 fL (78.0-98.0); Mean Platelet Volume 8.6 fL (7.4-10.4); Platelet Count 339 thou/uL (130-400); RBC Distribution Width 15.6 % (11.5-14.5); Red Blood Cell (RBC) Count 3.84 mill/uL (4.20-5.40); White Blood Cell (WBC) Count 11.6 thou/uL (4.8-10.8)
[2020-08-09 18:44] LABS: Iron 31 ug/dL (50-170); Iron Binding Capacity, Total 566 mcg/dL (265-497)
[2020-08-09 18:46] LABS: Anisocytosis SLIGHT = 6-15 cells (100X) (0-5/hpf); Band 6 % (5-11); Eosinophils 2 % (0-10); Hemoglobin 10.4 g/dL (12.0-16.0); Lymphocytes 20 % (21-51); MDiff Complete? YES; Mean Corpuscular HGB CONC 34.3 g/dL (32.0-36.0); Mean Corpuscular Hemoglobin 27.4 pg (27.0-31.0); Mean Corpuscular Volume 79.9 fL (78.0-98.0); Mean Platelet Volume 8.5 fL (7.4-10.4); Monocytes 3 % (0-10); Neutrophil 67 % (42-75); Platelet Count 323 thou/uL (130-400); Platelet Morphology Comment Appears Adequate; Polychromasia SLIGHT = 2-3 cells (100X) (0-2/hpf); RBC Distribution Width 15.6 % (11.5-14.5); Reactive Lymphocytes 2 % (0-10); Red Blood Cell (RBC) Count 3.78 mill/uL (4.20-5.40); Tear Drops SLIGHT = 2-5 cells (100X) (0-1/hpf); White Blood Cell (WBC) Count 12.3 thou/uL (4.8-10.8)
[2020-08-09 19:04] LABS: Ferritin 4.9 ng/mL (10-291); Free T4 (Free Thyroxine) 0.59 ng/dL (0.70-1.48); Thyroid Stimulating Hormone 3.2864 uIU/mL (0.35-4.94)
[2020-08-09 19:39] LABS: Bacteria/HPF None Seen HPF (None Seen); Bilirubin Negative (Negative); Blood, Urine Negative (Negative); Clarity Clear (Clear); Glucose, Urine (Dipstick) Greater than 1000 mg/dL (Negative); Ketone, Urine Negative (Negative); Leukocyte Negative Leu/uL (Negative); Nitrite Negative (Negative); Protein, Urine (Dipstick) Negative (Neg-Trace); RBC/HPF None Seen HPF (0-3); Specific Gravity, Urine 1.044 (1.002-1.036); Squamous Epithelial 0-3 HPF (0-3); Urobilinogen Normal mg/dL (Less than 2); WBC/HPF 0-3 HPF (0-3)
[2020-08-09] MEDS ORDERED: HumaLOG 300 UNITS/3 ML VIAL SC PRN ×2 (19:51→20:00)
[2020-08-09] MEDS ORDERED: Insulin Glargine 20 UNITS in Pre-Filled Syringe SC SCH (21:00)
[2020-08-09] MEDS: Acetaminophen 325 MG TAB PO PRN (22:50)
[2020-08-10 04:28] LABS: SARS-CoV-2 MS2 Positive; SARS-CoV-2 N Gene Negative; SARS-CoV-2 S Gene Negative; SARS-CoV-2 by NAA Not Detected (NotDetected); SARS-CoV-2 orf1ab Negative
[2020-08-10] MEDS: Acetaminophen 325 MG TAB PO PRN ×2 (04:47→15:22)
[2020-08-10] MEDS ORDERED: Levothyroxine Sodium 125 MCG TAB PO SCH (06:00)
--- NOTE | 2020-08-10 08:20 | PDOC.OBAPN ---
FMR OB AP PN: Sub - Interval History Hospital Day: 1 Chief Complaint: Uncontrolled DM Indentification: 34 year old at 20.5wk Interval History: Doing well, mild nausea overnight. No BERNADR/vision changes/SOB/ctx/VB. FMR OB AP PN: Obj - Maternal Vital signs: Selected Entries 08/10/20 08/10/20 04:30 07:39 Temperature 98.2 F Pulse Rate 98 Blood Pressure 102/71 [Semi-Fowlers] Respiratory 20 Rate O2 Sat by Pulse 96 Oximetry Oxygen Delivery Room Air Method - Urine output I&O: 08/09/20 08/10/20 08/11/20 06:59 06:59 06:59 Intake Total 1240 Output Total 900 Balance 340 - Heart Tones Baseline: 160 FMR OB AP PN: Exam - Physical Exam General: NAD, awake, alert and oriented HEENT: EOMI, MMM, conjunctiva clear Neck: supple, trachea midline Chest: non-tender to palpation Heart: pulses present, no edema General: no respiratory distress, no retractions Abdomen: soft, gravid, non-tender Musculoskeletal: FROM in all four extremities Skin: other (vitiligo of BL hands) Psychiatric: normal mood and affect FMR OB AP PN: Data - Labs Lab results: Laboratory Results - last 24 hr 08/09/20 08/09/20 08/09/20 16:33 18:00 18:00 WBC RBC Hgb Hct MCV MCH MCHC RDW Plt Count MPV Neutrophils % Neutrophils % (Manual) Band Neuts % (Manual) Lymphocytes % Lymphocytes % (Manual) Reactive Lymphs % Monocytes % Monocytes % (Manual) Eosinophils % Eosinophils % (Manual) Basophils % Neutrophils # Lymphocytes # Monocytes # Eosinophils # Basophils # Plt Morphology Comment Polychromasia Anisocytosis Tear Drop Cells Retic Count Immature Retic Fraction POC Glucose 237 H Iron 31 L TIBC 566 H % Saturation 5 L Ferritin 4.90 L Free T4 0.59 L Free T3 2.69 TSH 3rd Generation 3.2864 Urine Color Urine Clarity Urine pH Ur Specific [place] Urine Protein Urine Glucose (UA) Urine Ketones Urine Blood Urine Nitrite Urine Bilirubin Urine Urobilinogen Ur Leukocyte Esterase Urine RBC Urine WBC Ur Squamous Epith Cells Urine Bacteria SARS-CoV-2 (PCR) 08/09/20 08/09/20 08/09/20 18:00 18:00 18:00 WBC 11.6 H 12.3 H RBC 3.84 L 3.78 L Hgb 10.3 L 10.4 L Hct 30.6 L 30.2 L MCV 79.7 79.9 MCH 26.8 L 27.4 MCHC 33.6 34.3 RDW 15.6 H 15.6 H Plt Count 339 323 MPV 8.6 8.5 Neutrophils % 67.2 Neutrophils % (Manual) 67 Band Neuts % (Manual) 6 Lymphocytes % 23.7 Lymphocytes % (Manual) 20 L Reactive Lymphs % 2 Monocytes % 5.5 Monocytes % (Manual) 3 Eosinophils % 3.1 Eosinophils % (Manual) 2 Basophils % 0.5 Neutrophils # 7.8 H Lymphocytes # 2.7 Monocytes # 0.6 H Eosinophils # 0.4 Basophils # 0.1 Plt Morphology Comment Appears Adequate Polychromasia SLIGHT = 2-3 cells Anisocytosis SLIGHT = 6-15 cells Tear Drop Cells SLIGHT = 2-5 cells Retic Count 1.8 H Immature Retic Fraction 0.427 H POC Glucose Iron TIBC % Saturation Ferritin Free T4 Free T3 TSH 3rd Generation Urine Color Urine Clarity Urine pH Ur Specific [place] Urine Protein Urine Glucose (UA) Urine Ketones Urine Blood Urine Nitrite Urine Bilirubin Urine Urobilinogen Ur Leukocyte Esterase Urine RBC Urine WBC Ur Squamous Epith Cells Urine Bacteria SARS-CoV-2 (PCR) 08/09/20 08/09/20 08/09/20 18:57 19:32 20:30 WBC RBC Hgb Hct MCV MCH MCHC RDW Plt Count MPV Neutrophils % Neutrophils % (Manual) Band Neuts % (Manual) Lymphocytes % Lymphocytes % (Manual) Reactive Lymphs % Monocytes % Monocytes % (Manual) Eosinophils % Eosinophils % (Manual) Basophils % Neutrophils # Lymphocytes # Monocytes # Eosinophils # Basophils # Plt Morphology Comment Polychromasia Anisocytosis Tear Drop Cells Retic Count Immature Retic Fraction POC Glucose 214 H Iron TIBC % Saturation Ferritin Free T4 Free T3 TSH 3rd Generation Urine Color Light-Yellow Urine Clarity Clear Urine pH 6.0 Ur Specific [place] 1.044 H Urine Protein Negative Urine Glucose (UA) Greater than 1000 A Urine Ketones Negative Urine Blood Negative Urine Nitrite Negative Urine Bilirubin Negative Urine Urobilinogen Normal Ur Leukocyte Esterase Negative Urine RBC None Seen Urine WBC 0-3 Ur Squamous Epith Cells 0-3 Urine Bacteria None Seen SARS-CoV-2 (PCR) Not Detected 08/09/20 08/10/20 21:51 05:11 WBC RBC Hgb Hct MCV MCH MCHC RDW Plt Count MPV Neutrophils % Neutrophils % (Manual) Band Neuts % (Manual) Lymphocytes % Lymphocytes % (Manual) Reactive Lymphs % Monocytes % Monocytes % (Manual) Eosinophils % Eosinophils % (Manual) Basophils % Neutrophils # Lymphocytes # Monocytes # Eosinophils # Basophils # Plt Morphology Comment Polychromasia Anisocytosis Tear Drop Cells Retic Count Immature Retic Fraction POC Glucose 133 H 128 H Iron TIBC % Saturation Ferritin Free T4 Free T3 TSH 3rd Generation Urine Color Urine Clarity Urine pH Ur Specific [place] Urine Protein Urine Glucose (UA) Urine Ketones Urine Blood Urine Nitrite Urine Bilirubin Urine Urobilinogen Ur Leukocyte Esterase Urine RBC Urine WBC Ur Squamous Epith Cells Urine Bacteria SARS-CoV-2 (PCR) FMR OB AP PN: A/P - Problem List (1) Nany albicans infection Current Visit: Yes Status: Acute Code(s): B37.9 - CANDIDIASIS, UNSPECIFIED (2) Current Visit: Yes Status: Acute Qualifiers: Weeks of gestation: 20 weeks Qualified Code(s): Z3A.20 - 20 weeks gestation of (3) Diabetes mellitus type 2, insulin dependent Current Visit: Yes Status: Chronic Code(s): E11.9 - TYPE 2 DIABETES MELLITUS WITHOUT COMPLICATIONS; Z79.4 - SENIOR CARE (CURRENT) USE OF INSULIN (4) Hypothyroidism Current Visit: Yes Status: Chronic Code(s): E03.9 - HYPOTHYROIDISM, U NSPECIFIED Qualifiers: Hypothyroidism type: unspecified Qualified Code(s): E03.9 - Hypothyroidism, unspecified (5) Depression Current Visit: No Status: Chronic Code(s): F32.9 - MAJOR DEPRESSIVE DISORDER, SINGLE EPISODE, UNSPECIFIED Disposition: Patient is a 34 year old at 20.4wk who was admitted for uncontrolled DM #Uncontrolled DM, White class C - Hx of DM since age 16 with medical noncompliance. Hgb A1C 9.5 on 08/02/20. Hx of macrosomia infant previously. - Lantus 30u QAM and 20u QPM -> will increase PM dose to 25u - Novolog 15 units TID-WM -> Will increase dinner to 18u, monitor and adjust as needed - Continue home metformin - Discussed need to eat each meal with equivalent food portions - Daily fasting BG, 2 hour post prandial. Will adjust regimen as indicated. - Order 24hr urine protein - Directional Bore Operator consult with DM education #Symptomatic anemia - Hb 10.4, MCV 27.4, RDW 15.6, Retic 1.8, Ferritin 4.9, %Sat 5 - Iron infusion today #Candidal Vulvovaginitis - #VP3 positive yeast - monistat 5 (started 08/10) - UA clean #Anxiety, Depression, PTSD - Hx multiple suicide attempts and self harm - Continue home sertraline - Patient scheduled for outpatient counselling through [facility] #Hypothyroidism - TSH 1.84 1 month ago, TSH 3.2 at admission. T4 0.59, T3 2.69 - Will increase levo dose to 150mcg daily PCP: [facility] - Alex/Pasquale IVF: None Diet: Regular Dispo: Admitted to inpt for uncontrolled White class C DM in setting of . Iron infusion. Monitor BG and adjust insulin as indicated. Anticipate LOS >48hrs. Addendum - Attending - Attending Attestation Date/Time: 08/10/20 1410 I personally evaluated the patient and discussed the management with Dr. Burks. I agree with the History, Examination, Assessment and Plan documented above with any addition or exceptions noted below.
[2020-08-10] MEDS ORDERED: Insulin Glargine 30 UNITS in Pre-Filled Syringe SC SCH (09:00)
[2020-08-10] MEDS: Aspirin 81 mg Enteric Coated Tablet PO SCH (09:04)
[2020-08-10] MEDS: metFORMIN 500 MG TAB PO SCH ×2 (09:04→17:18)
[2020-08-10] MEDS: Prenatal Vitamin 1 TAB PO SCH (09:04)
[2020-08-10] MEDS: HumaLOG 300 UNITS/3 ML VIAL SC SCH ×3 (09:05→17:18)
[2020-08-10] MEDS ORDERED: Acetaminophen 500 MG TAB PO SCH ×2 (09:30→22:00)
[2020-08-10] MEDS: Insulin Glargine 40 UNITS in Pre-Filled Syringe 1 EACH SC SCH (09:57)
[2020-08-10] MEDS ORDERED: Iron Sucrose Complex 500 MG in Sodium Chloride 0.9% 250 ML 250 ML IVPB SCH (10:00)
[2020-08-10] MEDS ORDERED: Sodium Chloride 0.9% 10 ML ONE ×4 (10:12→23:01)
--- NOTE | 2020-08-10 11:10 | PDOC.BPN ---
- Brief Progress Note Laboratory Tests 08/09/20 08/09/20 08/09/20 16:33 18:00 18:00 Hgb Hct Plt Count Retic Count Immature Retic Fraction POC Glucose 237 H Iron 31 L TIBC 566 H % Saturation 5 L Ferritin 4.90 L Free T4 0.59 L Free T3 2.69 TSH 3rd Generation 3.2864 08/09/20 08/09/20 08/09/20 18:00 18:00 19:32 Hgb 10.4 L Hct 30.2 L Plt Count 323 Retic Count 1.8 H Immature Retic Fraction 0.427 H POC Glucose 214 H Iron TIBC % Saturation Ferritin Free T4 Free T3 TSH 3rd Generation 08/09/20 08/10/20 21:51 05:11 Hgb Hct Plt Count Retic Count Immature Retic Fraction POC Glucose 133 H 128 H Iron TIBC % Saturation Ferritin Free T4 Free T3 TSH 3rd Generation Mrs. Dumont, 34 year old at 20.5 wk who was admitted for uncontrolled DM Uncontrolled DM, White class C titrating insulin to meet glucose goals. Fasting <95, and 2 hr PP <120. Counseled pt on healthy diabetic diet to help her glucose control. She understands that her diet is closely related and will try harder to keep her diet low carb. PT to receive an iron infusion today. Once insulin titrated to meet goals pt to d/c home and f/u in clinic. Looking forward to seeing her in clinic. She thanked me for stopping by to say hi and participate in her hospital care. -Juliana Giordano,
[2020-08-10] MEDS: Iron, Sodium Ferric Gluconate 250 MG in Sodium Chloride 0.9% 100 ML IVPB SCH ×2 (11:31→23:23)
[2020-08-10 18:54] LABS: Urine Total Volume 1450 mL (600-1600)
[2020-08-10 19:20] LABS: Protein - 24 Hr 160 mg/24 hr (Less than 300); Protein, Urine 11 mg/dL (1-14)
[2020-08-10] MEDS ORDERED: Insulin Glargine 30 UNITS in Pre-Filled Syringe 1 EACH SC SCH (21:00)
[2020-08-10] MEDS ORDERED: Insulin Glargine 25 UNITS in Pre-Filled Syringe 1 EACH SC SCH (21:00)
[2020-08-10] MEDS: Clotrimazole 2% 3 Day Vag Cr 22.2 GM TUBE VAG SCH (21:22)
[2020-08-10] MEDS ORDERED: Ondansetron ODT 4 MG TAB PO PRN (22:30)
[2020-08-11] MEDS: Levothyroxine 150 MCG TAB PO SCH (05:27)
[2020-08-11] MEDS: Acetaminophen 325 MG TAB PO PRN ×2 (05:28→22:05)
--- NOTE | 2020-08-11 06:31 | PDOC.OBAPN ---
FMR OB AP PN: Sub - Interval History Hospital Day: 2 Chief Complaint: Uncontrolled DM Indentification: 34 year old at 20.6wk Interval History: LLQ abdominal pain improved. No nausea/vomiting. Improved BERNARD FMR OB AP PN: Obj - Maternal Vital signs: Wt: [36.5kg] BP 103/66 HR 104 RR 20 Temp 98.4 Pulse Ox 98% - Urine output I&O: 08/09/20 08/10/20 08/11/20 06:59 06:59 06:59 Intake Total 1240 Output Total 900 Balance 340 FMR OB AP PN: Exam - Physical Exam General: NAD, awake, alert and oriented Deviation from normal: Tearful when discussing missing her children HEENT: normocephalic and atraumatic, MMM Neck: FROM, trachea midline Heart: RRR, normal S1/S2, no edema General: CTAB, no respiratory distress, good air movement Abdomen: gravid, non-tender, bowel sound present Musculoskeletal: normal gait and station, no misalignment/asymmetry Neurological: no focal deficit Skin: no jaundice Lymphatic: no unusual bruising or bleeding Psychiatric: normal mood and affect FMR OB AP PN: Data - Labs Lab results: Laboratory Results - last 24 hr 08/09/20 08/09/20 08/10/20 18:00 18:45 10:[address] Review POC Glucose 152 H Urine Protein 11 Ur Collection Duration 24 Urine Total Volume 1450 U Tot Protein 24h, Calc 160 08/10/20 08/10/20 13:55 16:25 Diff [address] Review POC Glucose 98 137 H Urine Protein Ur Collection Duration Urine Total Volume U Tot Protein 24h, Calc R OB AP PN: A/P Disposition: Patient is a 34 year old at 20.4wk who was admitted for uncontrolled DM #Uncontrolled DM, White class C - Hx of DM since age 16 with medical noncompliance. Hgb A1C 9.5 on 08/02/20. Hx of macrosomia previously. - Lantus 40am, 30pm -> Will increase to 35 units pm - Novolog 15 units TID-WM -> Will increase to 18 units TID-WM - Continue home metformin - Discussed need to eat each meal with equivalent food portions - Daily fasting BG, 2 hour post prandial. Continue to adjust regimen as indicated. - F/u 24hr urine protein - Electro Tech consult with DM education #Symptomatic anemia - Hb 10.4, MCV 27.4, RDW 15.6, Retic 1.8, Ferritin 4.9, %Sat 5 - Iron infusion completed on 08/10. Stopped with 35mL remaining due to vomiting #Candidal Vulvovaginitis - #VP3 positive yeast - monistat 5 (started 08/10) - UA clean #Anxiety, Depression, PTSD - Hx multiple suicide attempts and self harm - Continue home sertraline - Patient scheduled for outpatient counselling through [facility] #Hypothyroidism - TSH 1.84 1 month ago, TSH 3.2 at admission. T4 0.59, T3 2.69 - Continue levo 150mcg daily PCP: [facility] - Alex/Pasquale IVF: None Diet: Regular Dispo: Admitted to inpt for uncontrolled White class C DM in setting of . Will continue to monitor BG and adjust insulin as indicated Addendum - Attending - Attending Attestation Date/Time: 08/11/20 0948 I personally evaluated the patient and discussed the management with Dr. Balderas. I agree with the History, Examination, Assessment and Plan documented above with any addition or exceptions noted below. She was refusing medication this morning and stated she needed to go home to be with her kids. i told her I would like to see her blood glucoses better controlled before discharge and that if she was willing to work with us today, she would likely be able to go home tomorrow. I also emphasized the need for consistent carb diet and for her to eat 3 meals plus 2 snacks daily. I told her ultimately it is her decision to stay in the hospital and allow us to treat her and if she wants to sign out AMA she can do that at any time. However, I again explained that her persistently elevated blood glucoses are causing harm to her baby and that I am keeping her here to control her blood sugars to help keep him healthy. She agreed to take her lantus and other PO meds this morning and at this time is agreeing to stay in the hospital. Even if we are able to control her blood sugars in the hospital, I am not sure how compliant she will be when she goes home as she has not followed a clinic directed insulin regimen to date. She currently has f/u with me on 08/23/20 at the clinic. Will hopefully be able to discharge her tomorrow if she does not leave AMA first.
[2020-08-11] MEDS: Aspirin 81 mg Enteric Coated Tablet PO SCH (09:18)
[2020-08-11] MEDS: metFORMIN 500 MG TAB PO SCH ×2 (09:18→18:03)
[2020-08-11] MEDS: Prenatal Vitamin 1 TAB PO SCH (09:18)
[2020-08-11] MEDS: HumaLOG 300 UNITS/3 ML VIAL SC SCH ×3 (09:19→18:04)
[2020-08-11] MEDS: Insulin Glargine 40 UNITS in Pre-Filled Syringe 1 EACH SC SCH (09:19)
[2020-08-11] MEDS ORDERED: HumaLOG 300 UNITS/3 ML VIAL SC PRN (09:55)
[2020-08-11] MEDS: Clotrimazole 2% 3 Day Vag Cr 22.2 GM TUBE VAG SCH (20:36)
[2020-08-11] MEDS ORDERED: Insulin Glargine 40 UNITS in Pre-Filled Syringe 1 EACH SC SCH (21:00)
[2020-08-12] MEDS: Acetaminophen 325 MG TAB PO PRN (04:58)
[2020-08-12] MEDS: Levothyroxine 150 MCG TAB PO SCH (06:13)
--- NOTE | 2020-08-12 06:31 | PDOC.OBAPN ---
R OB AP PN: Sub - Interval History Hospital Day: 3 Chief Complaint: Uncontrolled DM Indentification: 34 year old at 20.6wk Interval History: Mild headache this am. No vision changes, CP, SOB, nausea, abd pain. FMR OB AP PN: Obj - Maternal Vital signs: BP: [102/55] HR: [92] RR: [20] Tmax: [98.7F] Pox: [97]% on [RA] Wt: [93kg] - Urine output I&O: 08/10/20 08/11/20 08/12/20 06:59 06:59 06:59 Intake Total 1240 1380 1860 Output Total 900 Balance 340 1380 1860 FMR OB AP PN: Exam - Physical Exam General: NAD, awake, alert and oriented Deviation from normal: Sleeping upon arrival to the room. HEENT: normocephalic and atraumatic, no scleral icterus Neck: FROM, trachea midline Heart: RRR, normal S1/S2, no edema General: CTAB, no respiratory distress Abdomen: gravid, non-tender, bowel sound present Musculoskeletal: normal gait and station, no misalignment/asymmetry Neurological: no focal deficit Psychiatric: normal mood and affect R OB AP PN: Data - Labs Lab results: Laboratory Results - last 24 hr 08/11/20 08/11/20 08/11/20 06:35 11:51 15:37 POC Glucose 122 H 87 75 08/11/20 08/11/20 08/12/20 17:29 20:34 00:25 POC Glucose 70 70 80 R OB AP PN: A/P Disposition: Patient is a 34 year old at 20.4wk who was admitted for uncontrolled DM #Uncontrolled DM, White class C - Hx of DM since age 16 with medical noncompliance. Hgb A1C 9.5 on 08/02/20. Hx of macrosomia infant previously. - Continue Lantus 40am, 40 pm - Continue Novolog 20 units TID-WM - Continue home metformin - Reiterated the need to eat each meal with equivalent food portions - Daily fasting BG, 2 hour post prandial #Symptomatic anemia - Hb 10.4, MCV 27.4, RDW 15.6, Retic 1.8, Ferritin 4.9, %Sat 5 - Iron infusion completed on 08/10. Stopped with 35mL remaining due to vomiting #Candidal Vulvovaginitis - #VP3 positive yeast - monistat 5 (started 08/10) - UA clean. Urine culture showed no growth at 36 hours. #Anxiety, Depression, PTSD - Hx multiple suicide attempts and self harm - Continue home sertraline - Patient scheduled for outpatient counselling through [facility] #Hypothyroidism - TSH 1.84 1 month ago, TSH 3.2 at admission. T4 0.59, T3 2.69 - Continue levo 150mcg daily PCP: [facility] - Alex/Pasquale IVF: None Diet: Regular Dispo: Admitted to inpt for uncontrolled White class C DM in setting of . Will continue to monitor BG and adjust insulin as indicated. Likely discharge today. Will f/u at Dr. Mcdermott at [facility] on 08/23/20. Discussion: Date/Time: 08/12/20629 Addendum - Attending - Attending Attestation Date/Time: 08/12/20 0817 I personally evaluated the patient and discussed the management with Dr. Balderas. I agree with the History, Examination, Assessment and Plan documented above with any addition or exceptions noted below. Pending AM fasting glucose, can d/c home today. She already has f/u scheduled with me on 08/23. The biggest challenge that we will face controlling her glucose is her adherence to her diet and her insulin regimen.
[2020-08-12 09:23] VITALS: BP 115/75; TEMP 97.9
[2020-08-12] MEDS: Aspirin 81 mg Enteric Coated Tablet PO SCH (09:59)
[2020-08-12] MEDS: metFORMIN 500 MG TAB PO SCH (09:59)
[2020-08-12] MEDS: Prenatal Vitamin 1 TAB PO SCH (09:59)
[2020-08-12] MEDS: Insulin Glargine 40 UNITS in Pre-Filled Syringe 1 EACH SC SCH (10:01)
[2020-08-12] MEDS: HumaLOG 300 UNITS/3 ML VIAL SC SCH (10:02)
== END 2020-08-12 10:55 | disposition home or self-care (01) | DRG 832 ==
LOC: 3SE 16:04 → OBSVTOIN 16:36
PROVIDERS: ADMIT Family Medicine; ATTEND Family Medicine
DX: O24.112 Pre-existing type 2 diabetes mellitus, in pregnancy, second trimester (principal); O98.812 Other maternal infectious and parasitic diseases complicating pregnancy, second trimester; O99.212 Obesity complicating pregnancy, second trimester; E66.01 Morbid (severe) obesity due to excess calories; O99.342 Other mental disorders complicating pregnancy, second trimester; F41.9 Anxiety disorder, unspecified; F32.9 Major depressive disorder, single episode, unspecified; O99.012 Anemia complicating pregnancy, second trimester; D64.9 Anemia, unspecified; O99.282 Endocrine, nutritional and metabolic diseases complicating pregnancy, second trimester; E03.9 Hypothyroidism, unspecified; O99.352 Diseases of the nervous system complicating pregnancy, second trimester; B37.3 Candidiasis of vulva and vagina; F43.10 Post-traumatic stress disorder, unspecified; G43.909 Migraine, unspecified, not intractable, without status migrainosus; E11.65 Type 2 diabetes mellitus with hyperglycemia; Z3A.20 20 weeks gestation of pregnancy; Z79.4 Long term (current) use of insulin; Z79.51 Long term (current) use of inhaled steroids; Z79.890 Hormone replacement therapy; Z79.899 Other long term (current) drug therapy; Z88.1 Allergy status to other antibiotic agents; Z88.8 Allergy status to other drugs, medicaments and biological substances
CPT/HCPCS: 36415; 36416; 81001; 82728; 83540; 83550; 84156; 84439; 84443; 84481; 85007; 85025; 85027; 85046; 85060; 87086; 87480; 87510; 87635; 87660; J1815; J2916; J3490; Q0162; U0003

== ENCOUNTER 2020-09-09 20:10 | Day surgery (SDC) | payer OTHER ==
[2020-09-09 20:42] VITALS: BP 125/79; TEMP 98.8; BMI 37.9
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
[2020-09-09] MEDS ORDERED: hydrALAZINE 20 MG/ML VIAL SLOW IVP PRN (22:42)
[2020-09-09] MEDS ORDERED: Cyclobenzaprine 10 MG TAB PO PRN (22:46)
[2020-09-09] MEDS ORDERED: Acetaminophen 500 MG TAB PO SCH (23:00)
--- NOTE | 2020-09-09 23:34 | RAD ---
Exam: XR Shoulder Lt Ltd Survey HISTORY: Injury to left shoulder after falling from standing position. COMPARISON: None FINDINGS: 2 views left shoulder obtained, but both views were obtained in external rotation. Scapular Y view wa s not obtained to evaluate glenohumeral relationship. However, no definite dislocation is seen on this exam. There is no fracture seen. Coracoclavicular and acromioclavicular distances are within nor mal limits. IMPRESSION: No acute osseous abnormality is identified.
--- NOTE | 2020-09-09 23:35 | RAD ---
Exam: XR Hip Lt 1 View HISTORY: Fall from standing position. COMPARISON: None FINDINGS: Patient refused portion of the exam, and only a single AP view left hip is obtained. No fracture or d islocation is seen on this single view. IMPRESSION: No acute osseous abnormality seen on single AP image left hip.
--- NOTE | 2020-09-09 23:36 | RAD ---
EXAM: XR Cervical Spine 1 View PROVIDED CLINICAL HISTORY: Fall from standing position for COMPARISON: None FINDINGS: Patient was noncompliant and refused imaging. Only a single AP view cervical spine is obtained. Later al imaging was not obtained. Single AP view cervical spine has a normal appearance. However lateral positioning was not performed to evaluate for fracture or subluxation or prevertebral soft tissue swe lling. IMPRESSION: Limited examination as described above. Patient refused complete imaging of the cervical spine and on ly a single AP projection was obtained
[2020-09-10] MEDS ORDERED: Calcium Carbonate 500 MG ChewTAB PO SCH ×2 (00:15→09:00)
--- NOTE | 2020-09-10 02:32 | PDOC.BPN ---
- Brief Progress Note Reviewed imaging. Poor quality due to patient compliance. No fractures seen with the limited imaging. After imaging, patient refused further monitoring. We will discharge patient home with flexeril and tylenol.
== END 2020-09-10 03:15 | disposition home or self-care (01) ==
LOC: L&D/OP 20:10
PROVIDERS: ATTEND Emergency Medicine
DX: O99.891 Other specified diseases and conditions complicating pregnancy (principal); M25.512 Pain in left shoulder; M54.2 Cervicalgia; M54.10 Radiculopathy, site unspecified; L80 Vitiligo; O24.912 Unspecified diabetes mellitus in pregnancy, second trimester; E11.9 Type 2 diabetes mellitus without complications; O99.012 Anemia complicating pregnancy, second trimester; D64.9 Anemia, unspecified; O99.342 Other mental disorders complicating pregnancy, second trimester; F41.9 Anxiety disorder, unspecified; F32.9 Major depressive disorder, single episode, unspecified; F43.10 Post-traumatic stress disorder, unspecified; F90.9 Attention-deficit hyperactivity disorder, unspecified type; O99.282 Endocrine, nutritional and metabolic diseases complicating pregnancy, second trimester; E03.9 Hypothyroidism, unspecified; E78.1 Pure hyperglyceridemia; O99.352 Diseases of the nervous system complicating pregnancy, second trimester; G43.709 Chronic migraine without aura, not intractable, without status migrainosus; O99.212 Obesity complicating pregnancy, second trimester; E66.01 Morbid (severe) obesity due to excess calories; O09.522 Supervision of elderly multigravida, second trimester; Z3A.25 25 weeks gestation of pregnancy; Z79.4 Long term (current) use of insulin; Z79.82 Long term (current) use of aspirin; Z79.899 Other long term (current) drug therapy; Z88.1 Allergy status to other antibiotic agents; Z88.4 Allergy status to anesthetic agent; Z88.8 Allergy status to other drugs, medicaments and biological substances; W18.39XA Other fall on same level, initial encounter
CPT/HCPCS: 72020; 99285

== ENCOUNTER 2020-10-08 16:46 | Observation (INO) | payer OTHER ==
--- NOTE | 2020-10-08 18:21 | PDOC.FPROB ---
FMR OB H&P: HPI - History of Present Illness Chief Complaint: cramping, spotting, BG control issues Indentification: 35yo at 29.2wga History of Present Illness: This is a 35yo [id number] at 29.2 wga with LIZ 12/23/2020 who presented with multiple complaints of cramping, spotting, and blood sugar control issues. 1. Cramping - this is the pt's greatest concern. She has been having lower cramping pelvic pain intermittently since 09/11/2020 after a fall on 09/09 for which she was evaluated in the hospital. She had fallen on her L side and at that time imaging was completed and found no fx but she left AMA prior to completion of recommended monitoring. She states the pain feels the same as when the baby is kicking her. It is worsened by emotional stress and improved with warm baths but not with heating pads. She states it is 9/10 pain but can fall asleep despite it and is not awoken by the pain. She does not remember from previous pregnancies if this feels like contractions or Greg[place]ron. There have been no concerns this , aside from macrosomia 2/2 her DM. She has an appt with her PCP bobby. 2. Spotting - she noticed pink on her toilet paper this morning. It did not recur throughout the rest of the day. She denies phillip blood. 3. DM - she states she has been having increasing issues with her blood sugars. Per chart review, she has had T2DM since 16yo. She takes Metformin 1000mg BID, Lantus 40u BID, and Novolog 25u TID-WM. For the past 2months she has not been eating full meals d/t N/V. She has only been eating a few bites q3-4hrs of food such as "chicharron and beans". Because of this, she has not been using her Novolog. She is only able to eat full meals and administer her Novolog ~1 day/wk. This issue has not been noted in any of her previous visits with her PCP. She states she does not take anything for nausea. She endorses chronic constipation that has been worsening and is no longer responsive to the medications she typically takes for it. She states she takes a "red or orange" pill for it, but the only GI meds in her PCP's chart are miralax and senna. Primary Care Physician: BHASKAR Johnson / Pasquale FMR OB H&P: Current - Care : 6 Para: [id number] Gestational age: 29 Due date: 12/23/20 Dating Criteria: 1T U/S Course/Complications: alcohol use in 1T, uncontrolled T2DM, obesity, hypothyroidism, depression, PTSD, asthma - OB Labs Blood type: O RH: positive Antibody Screen: negative HIV: negative RPR: negative HepBsAg: negative Rubella: immune Urine drug screen: not done Gonorrhea: negative Chlamydia: negative A1c: 8.1 in 08/2020 H&H: 10.02/18 Platelets: 369 FMR OB H&P: History - Past Medical History PMH: Vitiligo Asthma HLD T2DM Hypothyroidism Depression with suicide attempt and self-harm hx. Denies current desire to self- harm. Denies suicidal ideation or plan. Has a good support system in her fiance and office services assistant. Has suicide/crisis hotline numbers taped to her wall. PTSD Sacroiliitis and Trochanteric bursitis (resolved 05/2020) - OB History OB History: C/s x3 2008: c/s 2/2 breech presentation. wga unknown 2011: IUFD at 30wks 2011, 2014: rLTCS at 40wks 2019: missed at 12wks - Surgical History Sx History: c/s x3 - Social History Social History: Lives with sindhu and both their kids (total of 7). Denies TAD. Alcohol use in 1T. - Family History Family History: Denies FMR OB H&P: Medications - Current Home Medications: Medication Instructions Recorded Confirmed Type Albuterol Sulfate 1.25 mg NEB Q8H PRN 30 Days #90 neb 05/06/19 10/08/20 Rx metFORMIN HCl [Metformin HCl] 1,000 mg PO BID 05/22/19 10/08/20 History Aspirin [Ecotrin Low Strength] 81 mg PO DAILY tab 08/12/20 10/08/20 Rx Famotidine [Pepcid] 20 mg PO HS PRN tab 08/12/20 10/08/20 Rx Insulin Aspart [Novolog Flexpen] 20 units SC TID-WM 30 Days #4 pen 08/12/20 10/08/20 Rx Insulin Glargine [Lantus Vial] 40 units SC HS vial 08/12/20 10/08/20 Rx Insulin Glargine [Lantus Vial] 40 units SC QAM vial 08/12/20 10/08/20 Rx Insulin Glargine [Lantus] 40 units SC DAILY 30 Days #3 vial 08/12/20 10/08/20 Rx Insulin Glargine [Lantus] 40 units SC HS 30 Days #3 vial 08/12/20 10/08/20 Rx Levothyroxine Sodium [Synthroid] 150 mcg PO DAILY 30 Days #30 tab 08/12/20 10/08/20 Rx Magnesium Oxide 400 mg PO BID 30 Days #60 tab 08/12/20 10/08/20 Rx Vitamin 1 tab PO DAILY tab 08/12/20 10/08/20 Rx Sennosides [Senokot] 2 tab PO HSPRN PRN tab 08/12/20 10/08/20 Rx Sertraline HCl [Zoloft] 50 mg PO DAILY tab 08/12/20 10/08/20 Rx Ubidecarenone [Co Q-10] 100 mg PO TID 30 Days #90 capsule 08/12/20 10/08/20 Rx Acetaminophen [Tylenol] 1,000 mg PO Q8HR #21 tab 09/10/20 10/08/20 Rx Cyclobenzaprine [Flexeril] 5 mg PO TIDPRN PRN #15 tab 09/10/20 10/08/20 Rx Allergies/Adverse Reactions: Allergies Allergy/AdvReac Type Severity Reaction Status Date / Time cefazolin sodium [From Ancef] Allergy Verified 10/08/20 18:17 zolmitriptan [From Zomig] Allergy THROAT Verified 10/08/20 18:17 SWELLING ANESTHETIC Allergy Intermediate Hives Uncoded 09/09/20 20:32 FMR OB H&P: ROS - Review of Systems General: denies: fever/chills Eyes: denies: vision changes, double vision, scotomas, floaters ENT: denies: nasal congestion, rhinorrhea, sore throat Cardiovascular: denies: chest pain, edema Respiratory: denies: cough, shortness of breath Gastrointestinal: reports: cramping, nausea, vomiting, constipation. denies: abdominal pain, diarrhea, bright red blood, dark black tarry stools Genitourinary (Female): denies: dysuria, polyuria, vaginal discharge, vaginal bleeding Musculoskeletal: reports: pain. denies: swelling Neurologic: reports: headache (reported hx of migraines) Integumentary: denies: itching, rash Endocrine: reports: polydipsia Psychological: reports: depression, anxiety FMR OB H&P: Vital Signs - Maternal Vital signs: HR low 100s, c/w previous admissions. T 99.2F - Heart Tones Baseline: 160 Variability: moderate Acceleration: present Deceleration: absent [place] contractions every: None FMR OB H&P: Physical Exam - Physical Exam General: NAD, awake, alert and oriented HEENT: normocephalic and atraumatic, EOMI, MMM, grossly normal vision, grossly normal hearing, oropharynx clear Neck: supple, FROM, trachea midline Chest: non-tender to palpation, no lesions Heart: RRR, normal S1/S2, no murmurs/rubs/gallops, pulses present, no edema General: CTAB, no respiratory distress, good air movement Abdomen: soft, gravid, bowel sound present Deviation from normal: ttp along lower abdomen, pelvis Musculoskeletal: FROM in all four extremities Neurological: no focal deficit Skin: no rash Lymphatic: no unusual bruising or bleeding Psychiatric: intact recent and remote memory, good judgement and insight, normal mood and affect FMR OB H&P: A/P Disposition: This is a 35yo at 29.2wga presenting for cramping, spotting, and blood sugar issues. Cramping - Suspect round ligament pain. Constipation may be contributing factor, see below. - Continue home tylenol and flexeril - No ctxns on toco - FHT reassuring was baseline ~160, mod taye, good accels, no decels Spotting, resolved - One episode earlier in the day without phillip blood and none since - FHT reassuring, as above - Monitor for recurrence Uncontrolled T2DM - Suspect N/V/constipation may be 2/2 gastroparesis - A1c in 08/2020 was 8.1 - Continue home Metformin, Lantus, and Novolog - CC diet, 2000kcal. accu checks fasting and 2hr postprandial with bedtime and mild sliding scale. hyper- and hypoglycemia protocols in place Persistent vomiting - Suspect 2/2 gastroparesis - Zofran, Phenergan prn prior to meals. Consider sending home with new prescription - Monitor ability to tolerate PO while in the hospital Constipation - Hx of chronic constipation, likely worse 2/2 gastroparesis - Continue home miralax, senna - Added dulcolax and soapsud enema - Consider rectal exam to evaluate for impaction if not relieved by above - Consider starting Reglan Depression - Denies current intent to harm, suicidal/homicidal ideation, suicide plan. None since >1yr ago - Has crisis/suicide hotline numbers and good support system Other chronic medical conditions include the following: Anemia Anxiety PTSD Hypothyroidism Hypertriglyceridemia Morbid obesity Vitiligo Chronic migraine Physician is aware of the above; patient should continue current medical management and continue to f/u regularly with PCP Dispo: admit to PP to manage BG control and ensure she is able to tolerate PO. eLOS <48hrs Discussion: Date/Time: 10/08/201819 This H&P was discussed with Dr. Karen Mcintyre and Dr. Joshua Graham who agree with the above documentation and plan.
[2020-10-08] MEDS ORDERED: hydrALAZINE 20 MG/ML VIAL SLOW IVP PRN (19:06)
[2020-10-08] MEDS ORDERED: Acetaminophen 500 MG TAB PO PRN (20:01)
[2020-10-08] MEDS ORDERED: Promethazine HCl 25 MG/ML VIAL IM PRN (20:01)
[2020-10-08] MEDS ORDERED: Docusate 100 MG CAP PO PRN (20:01)
[2020-10-08] MEDS ORDERED: Ondansetron PF 4 MG/2 ML Vial IVP PRN (20:01)
[2020-10-08] MEDS: Ondansetron ODT 4 MG TAB PO PRN (21:18)
[2020-10-08 21:43] LABS: ALT (SGPT) Less than 7 U/L (8-55); AST (SGOT) 7 U/L (5-34); Albumin 2.9 g/dL (3.5-5.0); Alkaline Phosphatase 81 U/L (40-110); Anion Gap 11 mmol/L (10-20); BUN (Urea Nitrogen) 7 mg/dL (7.0-18.7); Bilirubin, Total 0.4 mg/dL (0.2-1.2); Calc. Creatinine Clearance 0 mL/min (70-130); Calcium 8.1 mg/dL (7.8-10.44); Carbon Dioxide 21 mmol/L (22-29); Chloride 107 mmol/L (98-107); Globulin 3.2 g/dL (2.4-3.5); Glucose 168 mg/dL (70-105); Potassium 3.9 mmol/L (3.5-5.1); Protein, Total 6.1 g/dL (6.0-8.3); Sodium 135 mmol/L (136-145)
[2020-10-08] MEDS ORDERED: Senokot 8.6 MG TAB PO PRN (22:06)
[2020-10-08] MEDS ORDERED: Albuterol Sulfate 1.25 MG/3 ML NEB NEB PRN (22:06)
[2020-10-08] MEDS ORDERED: Cyclobenzaprine 10 MG TAB PO PRN (22:06)
[2020-10-08] MEDS ORDERED: HumaLOG 300 UNITS/3 ML VIAL SC PRN ×2 (22:08)
[2020-10-08] MEDS ORDERED: Dextrose 5% in Water 1,000 ML IV PRN (22:08)
[2020-10-08] MEDS ORDERED: Dextrose 50% Abboject 50 ML SYRINGE SLOW IVP PRN (22:08)
[2020-10-08] MEDS ORDERED: Insulin Glargine 40 UNITS in Pre-Filled Syringe 1 EACH SC SCH (22:45)
[2020-10-09] MEDS: Famotidine 20 MG TAB PO PRN ×2 (04:43→22:26)
[2020-10-09] MEDS: Levothyroxine 150 MCG TAB PO SCH (06:21)
--- NOTE | 2020-10-09 06:24 | PDOC.OBAPN ---
FMR OB AP PN: Sub - Interval History Hospital Day: 2 Chief Complaint: none, sleeping comfortably Indentification: 35 yo at 29.2 wga Interval History: No emesis overnight, tolerated PO. possible GERD sx. FMR OB AP PN: Obj - Maternal Vital signs: BP: 116/78 HR: 110 Pox: 98% on RA - Heart Tones Baseline: 150 (reactive) Variability: moderate Acceleration: present Deceleration: absent [place] contractions every: none FMR OB AP PN: Exam - Physical Exam General: NAD (sleeping comfortably) HEENT: normocephalic and atraumatic, grossly normal vision, grossly normal hearing Heart: normal S1/S2, no murmurs/rubs/gallops (tachycardic) General: CTAB, no respiratory distress Abdomen: soft, gravid, non-tender FMR OB AP PN: Data - Labs Lab results: Laboratory Results - last 24 hr 10/08/20 10/09/20 21:04 00:03 Sodium 135 L Potassium 3.9 Chloride 107 Carbon Dioxide 21 L Anion Gap 11 BUN 7 Creatinine 0.53 L Estimated GFR (MDRD) Greater than 90 Glucose 168 H POC Glucose 209 H Calcium 8.1 Total Bilirubin 0.4 AST 7 ALT Less than 7 L Alkaline Phosphatase 81 Serum Total Protein 6.1 Albumin 2.9 L Globulin 3.2 Albumin/Globulin Ratio 0.9 L FMR OB AP PN: A/P 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 Admitted for blood sugar control in setting of IUFD. Discussion: Date/Time: 10/09/20623 This is a 35yo at 29.2wga presenting for cramping, spotting, and blood sugar issues. Uncontrolled T2DM in 3T of - Suspect N/V/constipation may be 2/2 gastroparesis - A1c in 08/2020 was 8.1 - Continue home Metformin, Lantus, and Novolog - CC diet, 2000kcal. accu checks fasting and 2hr postprandial with bedtime and mild sliding scale. hyper- and hypoglycemia protocols in place - NST qSHIFT for T2DM, reactive this AM and overnight, no contractions - A1C this am Cramping, resolved - Continue home tylenol and flexeril Persistent vomiting, improved - Suspect 2/2 gastroparesis versus GERD - Zofran, Phenergan prn prior to meals - Monitor ability to tolerate PO while in the hospital Constipation - Hx of chronic constipation, likely worse 2/2 gastroparesis - strict I/Os - Continue home miralax, senna; Added dulcolax and soapsud enema - Consider rectal exam to evaluate for impaction if not relieved by above - Consider starting Reglan if more gastroparesis picture results Depression - Stable, no SI Other chronic medical conditions include the following: Anemia, Anxiety, PTSD, Hypertriglyceridemia, Morbid obesity, Vitiligo, Chronic migraine Hypothyroidism - TSH today, last one on 08/31/2020 was 2.6 This H&P was discussed with Dr. Huff, who agrees with the above documentation and plan. Signature: Bhavin Louise MD, PGY2 Addendum - Attending - Attending Attestation Date/Time: 10/10/20 9947 I personally evaluated the patient and discussed the management with Dr. Dumont yesterday. I agree with the History, Examination, Assessment and Plan documented above with any addition or exceptions noted below.
[2020-10-09 08:33] VITALS: BMI 38.6
[2020-10-09] MEDS ORDERED: FLU VACC QS2020-21(6MOS UP)/PF 60 MCG/0.5 ML SYRINGE IM ONE (09:00)
[2020-10-09] MEDS ORDERED: Senokot 8.6 MG TAB PO SCH (09:00)
[2020-10-09] MEDS: metFORMIN 500 MG TAB PO SCH ×2 (10:20→18:46)
[2020-10-09] MEDS: Docusate 100 MG CAP PO SCH ×2 (10:20→21:19)
[2020-10-09] MEDS: Prenatal Vitamin 1 TAB PO SCH (10:20)
[2020-10-09] MEDS: HumaLOG 300 UNITS/3 ML VIAL SC SCH ×3 (10:21→18:47)
[2020-10-09] MEDS: Insulin Glargine 40 UNITS in Pre-Filled Syringe 1 EACH SC SCH ×2 (10:22→22:22)
--- NOTE | 2020-10-09 10:38 | ULT ---
Please see the separately dictated, concurrently performed obstetrical ultrasound for details concern ing the biophysical profile
--- NOTE | 2020-10-09 10:38 | ULT ---
OBSTETRICAL ULTRASOUND WITH BIOPHYSICAL PROFILE INDICATION: 35-year-old female with and type 2 diabetes TECHNIQUE: Grayscale, M-mode Doppler, color Doppler and spectral Doppler images were obtained. Biophy sical profile was submitted by the gate technician. Imaging is focused on the clinical indication. COMPARISON: Pelvic ultrasound dated May 07, 2020 GESTATION: Number of gestations: Single. Presentation: Cephalic. heart rate: 153 bpm. Placental location: Posterior Previa: No evidence for previa. Cervical length: Not well seen MARICARMEN: 22.2 cm. Biophysical profile: tone: 2 out of 2. breathin out of 2 movements: 2 out of 2 Amniotic fluid level: 2 out of 2 Limited survey: The visualized heart, head, stomach, diaphragm, cord insertio n and three-vessel cord appear within normal limits. biometrics: The biparietal diameter measured 7.79 cm given estimated gestational age of 31 weeks and 2 days (91st percentile) The head circumference measured 29.04 cm given estimated gestational age of 30 weeks and 0 days (89th percentile). The abdominal circumference measures 28.08 cm giving estimated gestational age of 32 weeks and 1 day (98th percentile). The femoral length measured 5.62 cm given estimated gestational age of 29 weeks and 4 days. (42nd per centile) Estimated weight is 1007 31 g +/- 2 156 g (3 lbs. 13 oz. +/- 9 ounces) (95th percentile) The average gestational age based on biometrics is 31 weeks and 3 days with estimated due date of December 08, 2020. The clinical age is 29 weeks and 2 days with estimated due date of December 23, 2020. IMPRESSION: 1. Single live intrauterine gestation with size and dates as above. 2. Polyhydramnios. 3. Large for gestational age. 4. Biophysical profile of 8 out of 8.
[2020-10-09] MEDS: Ondansetron ODT 4 MG TAB PO PRN (13:05)
[2020-10-09 13:59] LABS: Hemoglobin A1c 8.2 % (4.0-6.0)
[2020-10-09] MEDS: Magnesium Oxide 400 MG TAB PO SCH ×2 (16:23→21:18)
[2020-10-09] MEDS: Aspirin 81 mg Enteric Coated Tablet PO SCH (16:23)
[2020-10-09] MEDS: Ubidecarenone 50 MG CAP PO SCH ×3 (16:23→21:19)
[2020-10-09 18:44] LABS: SARS-CoV-2 PCR by NAA Not Detected (NotDetected)
[2020-10-09] MEDS ORDERED: Insulin Glargine 40 UNITS in Pre-Filled Syringe 1 EACH SC SCH (21:00)
[2020-10-10] MEDS: Levothyroxine 150 MCG TAB PO SCH (05:49)
--- NOTE | 2020-10-10 06:26 | PDOC.OBAPN ---
FMR OB AP PN: Sub - Interval History Hospital Day: 3 Chief Complaint: headache Indentification: 35 yo at 29.3 wga FMR OB AP PN: Obj - Maternal Vital signs: BP: 107/57 HR: 104 RR: 20 Tmax: 98.7 F Pox: 97% on RA - Heart Tones Baseline: 150 (reactive) Variability: moderate Acceleration: present Deceleration: absent [place] contractions every: none FMR OB AP PN: Exam - Physical Exam General: NAD, awake, alert and oriented HEENT: normocephalic and atraumatic, no scleral icterus, grossly normal vision, grossly normal hearing Heart: RRR, normal S1/S2, no murmurs/rubs/gallops General: CTAB, no respiratory distress Abdomen: soft, gravid, other (tender to palpation over left and right rib cage) Skin: no rash Psychiatric: intact recent and remote memory, normal mood and affect FMR OB AP PN: Data - Labs Lab results: Laboratory Results - last 24 hr 10/09/20 10/09/20 10/09/20 06:23 10:20 13:08 POC Glucose 202 H 109 H Hemoglobin A1c Free T4 TSH 3rd Generation SARS CoV-2 Rapid Source Nasopharyngeal Swab SARS-CoV-2 RNA ([facility]ARG[facility]) Not Detected 10/09/20 10/09/20 10/09/20 13:41 13:41 13:41 POC Glucose Hemoglobin A1c 8.2 H Free T4 0.78 TSH 3rd Generation 1.6501 SARS CoV-2 Rapid Source SARS-CoV-2 RNA ([facility]ARGUERITE) 10/09/20 10/09/20 10/10/20 16:31 21:07 05:52 POC Glucose 77 110 H 91 Hemoglobin A1c Free T4 TSH 3rd Generation SARS CoV-2 Rapid Source SARS-CoV-2 RNA ([facility]ARGUERITE) FMR OB AP PN: A/P Disposition: Likely discharge home today with pepcid and zofran or phenergan. Needs appointment at [facility] scheduled prior to discharge. Her daughter has appt tomorrow so could be seen tomorrow. Discussion: Date/Time: 10/10/20624 This is a 35yo at 29.2wga presenting for cramping, spotting, and blood sugar issues. Uncontrolled T2DM in 3T of - Continue home Metformin, Lantus, and Novolog - CC diet, 2000kcal. accu checks fasting and 2hr postprandial with bedtime and mild sliding scale. hyper- and hypoglycemia protocols in place - NST qSHIFT for T2DM - A1C 8.2 - fasting 91, 2hr postprandials on 10/09 109, 77, 110 Large for gestational age fetus - EFW 95% ile - likely early delivery Cramping, resolved - Continue home tylenol and flexeril Persistent vomiting, improved - Suspect 2/2 gastroparesis versus GERD - Zofran, Phenergan prn prior to meals Constipation - Hx of chronic constipation, likely worse 2/2 gastroparesis - strict I/Os Depression - Stable, no SI Other chronic medical conditions include the following: Anemia, Anxiety, PTSD, Hypertriglyceridemia, Morbid obesity, Vitiligo, Chronic migraine Hypothyroidism - TSH 1.65, free T4 0.78, last TSH on 08/31/2020 was 2.6 This H&P was discussed with Dr. Huff, who agrees with the above documentation and plan. Signature: Bhavin Louise MD, PGY2 Addendum - Attending - Attending Attestation Date/Time: 10/11/20 0705 I personally evaluated the patient and discussed the management with Dr. Louise yesterday. I agree with the History, Examination, Assessment and Plan documented above with any addition or exceptions noted below.
[2020-10-10 07:06] LABS: Anion Gap 13 mmol/L (10-20); BUN (Urea Nitrogen) 7 mg/dL (7.0-18.7); Calc. Creatinine Clearance 0 mL/min (70-130); Calcium 7.8 mg/dL (7.8-10.44); Carbon Dioxide 18 mmol/L (22-29); Chloride 107 mmol/L (98-107); Glucose 105 mg/dL (70-105); Potassium 3.8 mmol/L (3.5-5.1); Sodium 134 mmol/L (136-145)
[2020-10-10] MEDS: Prenatal Vitamin 1 TAB PO SCH (08:37)
[2020-10-10] MEDS: Docusate 100 MG CAP PO SCH (08:38)
[2020-10-10] MEDS ORDERED: Ibuprofen 200 MG TAB PO SCH (09:00)
[2020-10-10] MEDS ORDERED: Acetaminophen 500 MG TAB PO SCH (09:00)
[2020-10-10] MEDS: HumaLOG 300 UNITS/3 ML VIAL SC SCH (09:45)
[2020-10-10] MEDS: metFORMIN 500 MG TAB PO SCH (09:45)
[2020-10-10] MEDS: Aspirin 81 mg Enteric Coated Tablet PO SCH (09:45)
[2020-10-10] MEDS: Insulin Glargine 40 UNITS in Pre-Filled Syringe 1 EACH SC SCH (09:46)
[2020-10-10] MEDS: Magnesium Oxide 400 MG TAB PO SCH (10:14)
[2020-10-10] MEDS: Ubidecarenone 50 MG CAP PO SCH (10:14)
[2020-10-10 10:25] VITALS: BP 96/59; TEMP 98.5
--- NOTE | 2020-10-11 07:07 | DIS ---
DATE OF ADMISSION: 10/08/2020 DATE OF DISCHARGE: 10/10/2020 RESIDENT: Sarah Louise MD ADMITTING ATTENDING: Dr. Graham. DISCHARGE ATTENDING: Dr. Huff. PRIMARY DIAGNOSES: 1. Uncontrolled type-2 diabetes in , 3rd trimester. 2. Large for gestational age fetus. 3. Vomiting, improved. 4. Abdominal cramping, resolved. SECONDARY DIAGNOSES: 1. Chronic constipation. 2. Major depressive disorder. 3. Anxiety. 4. Anemia. 5. PTSD. 6. Hypertriglyceridemia. 7. Morbid obesity. 8. Vitiligo. 9. Chronic migraines. 10. Hypothyroidism. PROCEDURES: 1. Biophysical profile 04/28. 2. Growth ultrasound with estimated weight in the 95th percentile. DISCHARGE MEDICATIONS: 1. Colace 100 mg p.o. b.i.d. p.r.n. 2. Zofran 4 mg p.o. q.6 hours p.r.n. for nausea and vomiting. 3. Albuterol sulfate 1.25 mg nebulizer q.8 hours p.r.n. 4. Metformin 1000 mg p.o. twice daily. 5. Aspirin 81 mg p.o. daily. 6. Lantus 40 units subcutaneous b.i.d. 7. vitamin 1 tab p.o. daily. 8. Sennosides 2 tabs oral at bedtime as needed for constipation. 9. Sertraline 50 mg p.o. daily. 10. CoQ10 of 100 mg p.o. t.i.d. 11. Magnesium oxide 400 mg p.o. twice daily. 12. Levothyroxine 150 mcg p.o. daily. 13. Acetaminophen 1000 mg p.o. q.8 hours p.r.n. 14. Cyclobenzaprine 5 mg p.o. t.i.d. p.r.n. for muscle spasm. 15. NovoLog 25 units subcutaneously t.i.d. with meals. 16. Pepcid 20 mg p.o. twice daily. DISCONTINUED MEDICATIONS: None. HISTORY OF PRESENT ILLNESS AND HOSPITAL COURSE: This patient is a 35-year-old G6, P3-1-1-3 at 29.2 weeks gestation, who presented with multiple complaints of cramping and spotting, which had resolved along with blood sugar control issues. She had been having trouble tolerating p.o. due to nausea and vomiting. Therefore, she was not taking her insulin regularly. She was admitted to help with her p.o. tolerance and administration of diabetes medications. On admission, the patient's heart tracings were reassuring and NSTs were reactive. A new hemoglobin A1c was drawn, which was 8.2. TSH also was drawn, which was 1.65 with a free T4 of 0.78. Initially, her fasting sugar was 202, but on the day after admission by controlling her intake, her fasting sugar was 105. A BPP was ordered to check the status of the fetus, and BPP was 8/8 along with large for gestational age measurement with EFW being the 95th percentile. The patient was not requiring insulin adjustment and so she was discharged with diet education and plan for close followup with appointment at [facility] the day after discharge. Regarding delivery, she will likely need early delivery at 36 wga due to her uncontrolled type 2 diabetes. DISCHARGE INSTRUCTIONS: 1. Discharge location: Home. 2. Diet: Carbohydrate consistent, less than 2000 kilocalories per day. 3. Activity: As tolerated. 4. Followup: Follow up with [facility] and [facility]FM as scheduled. Job ID: [id number] TETO
== END 2020-10-10 12:00 | disposition home or self-care (01) ==
LOC: L&D/OP 16:46 → L&D 22:53 → 3SW 10-09 09:14
PROVIDERS: ADMIT Family Medicine; ATTEND Family Medicine
DX: O24.113 Pre-existing type 2 diabetes mellitus, in pregnancy, third trimester (principal); O36.63X0 Maternal care for excessive fetal growth, third trimester, not applicable or unspecified; O21.2 Late vomiting of pregnancy; O99.891 Other specified diseases and conditions complicating pregnancy; R10.2 Pelvic and perineal pain; L80 Vitiligo; O26.853 Spotting complicating pregnancy, third trimester; O99.613 Diseases of the digestive system complicating pregnancy, third trimester; K59.09 Other constipation; O99.343 Other mental disorders complicating pregnancy, third trimester; F32.9 Major depressive disorder, single episode, unspecified; F41.9 Anxiety disorder, unspecified; F43.10 Post-traumatic stress disorder, unspecified; O99.283 Endocrine, nutritional and metabolic diseases complicating pregnancy, third trimester; E03.9 Hypothyroidism, unspecified; E78.1 Pure hyperglyceridemia; O99.213 Obesity complicating pregnancy, third trimester; E66.01 Morbid (severe) obesity due to excess calories; O99.353 Diseases of the nervous system complicating pregnancy, third trimester; G43.709 Chronic migraine without aura, not intractable, without status migrainosus; O40.3XX0 Polyhydramnios, third trimester, not applicable or unspecified; Z3A.29 29 weeks gestation of pregnancy; Z91.5 Personal history of self-harm; Z79.4 Long term (current) use of insulin; Z79.82 Long term (current) use of aspirin; Z79.899 Other long term (current) drug therapy; Z88.4 Allergy status to anesthetic agent; Z88.8 Allergy status to other drugs, medicaments and biological substances; Z20.822 Contact with and (suspected) exposure to COVID-19
CPT/HCPCS: 36415; 36416; 59025; 76815; 76819; 80048; 80053; 83036; 84439; 84443; 87635; 99285; G0378; J1815; Q0162; U0003; U0005

== ENCOUNTER 2021-10-24 00:28 | Emergency (ER) | payer OTHER, SELFPAY ==
[2021-10-24 03:02] LABS: Pregnancy Test - Urine (BHCG) Negative (Negative); Pregu Control Background? CLEAR/WHITE (CLR/WHITE); Pregu Control Bar Appear? YES (CONTROL BAR); Specific Gravity 1.041 (1.002-1.036)
[2021-10-24] MEDS ORDERED: Iopamidol 370 76% 50 ML VIAL FS ONE (11:35)
== END 2021-10-24 04:36 | disposition home or self-care (01) ==
LOC: ERS 00:28
DX: S00.83XA Contusion of other part of head, initial encounter (principal); S30.1XXA Contusion of abdominal wall, initial encounter; E78.5 Hyperlipidemia, unspecified; E78.00 Pure hypercholesterolemia, unspecified; E11.9 Type 2 diabetes mellitus without complications; E03.9 Hypothyroidism, unspecified; J45.909 Unspecified asthma, uncomplicated; Z79.899 Other long term (current) drug therapy; Z79.4 Long term (current) use of insulin; Z79.84 Long term (current) use of oral hypoglycemic drugs; Y04.8XXA Assault by other bodily force, initial encounter
CPT/HCPCS: 70450; 72125; 74177; 81025

== ENCOUNTER 2022-06-13 01:28 | Emergency (ER) | payer OTHER ==
[2022-06-13] MEDS ORDERED: Acetaminophen 500 MG TAB ONE (01:48)
[2022-06-13 01:58] LABS: Hemoglobin 8.9 g/dL (12.0-16.0); Mean Corpuscular HGB CONC 32.3 g/dL (32.0-36.0); Mean Corpuscular Hemoglobin 24.2 pg (27.0-31.0); Mean Platelet Volume 9.2 fL (7.4-10.4); Platelet Count 365 thou/uL (130-400); RBC Distribution Width 15.5 % (11.5-14.5); Red Blood Cell (RBC) Count 3.66 mill/uL (4.20-5.40); White Blood Cell (WBC) Count 8.1 thou/uL (4.8-10.8)
[2022-06-13 02:12] LABS: ALT (SGPT) 9 U/L (8-55); AST (SGOT) 11 U/L (5-34); Albumin 4.3 g/dL (3.5-5.0); Alkaline Phosphatase 93 U/L (40-110); Anion Gap 15 mmol/L (10-20); BUN (Urea Nitrogen) 11 mg/dL (7.0-18.7); Bilirubin, Total 0.4 mg/dL (0.2-1.2); Calc. Creatinine Clearance 0 mL/min (70-130); Calcium 8.7 mg/dL (7.8-10.44); Carbon Dioxide 22 mmol/L (22-29); Chloride 107 mmol/L (98-107); Estimated GFR 100; Globulin 3.3 g/dL (2.4-3.5); Glucose 272 mg/dL (70-105); Potassium 4.2 mmol/L (3.5-5.1); Protein, Total 7.6 g/dL (6.0-8.3); Sodium 140 mmol/L (136-145)
[2022-06-13 02:30] LABS: Bilirubin Negative (Negative); Blood, Urine Negative (Negative); Clarity Clear (Clear); Glucose, Urine (Dipstick) Greater than 1000 mg/dL (Negative); Ketone, Urine Negative (Negative); Leukocyte Negative Leu/uL (Negative); Nitrite Negative (Negative); Protein, Urine (Dipstick) Negative (Neg-Trace); Specific Gravity, Urine 1.025 (1.002-1.036); Urobilinogen Normal mg/dL (Less than 2)
[2022-06-13 02:31] LABS: #Basophils 0.1 thou/uL (0.0-0.2); #Eosinphils 0.2 thou/uL (0.0-0.7); #Monocytes 0.5 thou/uL (0.11-0.59); #Neutrophils 4.4 thou/uL (1.40-6.50); %Eosinophils 2.6 % (0.0-10.0); %Lymphocytes 36.7 % (21.0-51.0); %Monocytes 5.8 % (0.0-10.0); %Neutrophils 53.9 % (42.0-75.0); Anisocytosis SLIGHT = 6-15 cells (100X) (0-5/hpf); MDiff Complete? YES; Microcytosis SLIGHT = 6-15 cells (100X) (0-5/hpf)
[2022-06-13] MEDS ORDERED: Ketorolac Tromethamine 30 MG/ML VIAL ONE (03:21)
== END 2022-06-13 03:39 | disposition home or self-care (01) ==
LOC: ERS 01:28
DX: R10.2 Pelvic and perineal pain (principal); E78.5 Hyperlipidemia, unspecified; E78.00 Pure hypercholesterolemia, unspecified; E11.9 Type 2 diabetes mellitus without complications; E03.9 Hypothyroidism, unspecified
CPT/HCPCS: 36415; 76856; 80053; 81003; 84702; 85025; 86900; 86901; 96374; J1885

== ENCOUNTER 2022-06-22 18:13 | Emergency (ER) | payer OTHER ==
[2022-06-22] MEDS ORDERED: Ketorolac Tromethamine 30 MG/ML VIAL ONE (19:04)
== END 2022-06-22 19:20 | disposition home or self-care (01) ==
LOC: ERS 18:13
DX: H60.92 Unspecified otitis externa, left ear (principal); E11.9 Type 2 diabetes mellitus without complications; E78.5 Hyperlipidemia, unspecified
CPT/HCPCS: 96372; 99282; J1885

== ENCOUNTER 2022-07-15 18:20 | Emergency (ER) | payer OTHER ==
[2022-07-15 20:39] LABS: SARS-CoV-2 NAA Rapid Test Not Detected (NotDetected)
== END 2022-07-15 22:37 | disposition home or self-care (01) ==
LOC: ERS 18:20
DX: B34.9 Viral infection, unspecified (principal); E11.9 Type 2 diabetes mellitus without complications; I10 Essential (primary) hypertension; E03.9 Hypothyroidism, unspecified; E78.00 Pure hypercholesterolemia, unspecified; Z20.822 Contact with and (suspected) exposure to COVID-19
CPT/HCPCS: 87081; 87430; 99283

== ENCOUNTER 2022-11-30 08:02 | Emergency (ER) | payer OTHER ==
[2022-11-30] MEDS ORDERED: Ketorolac Tromethamine 30 MG/ML VIAL ONE (08:51)
[2022-11-30] MEDS ORDERED: Metoclopramide HCl 10 MG/2 ML VIAL ONE (08:51)
[2022-11-30] MEDS ORDERED: Acetaminophen 500 MG TAB ONE (08:51)
[2022-11-30 09:21] LABS: #Basophils 0.1 thou/uL (0.0-0.2); #Eosinphils 0.3 thou/uL (0.0-0.7); #Lymphocytes 2.7 thou/uL (1.20-3.40); #Monocytes 0.4 thou/uL (0.11-0.59); #Neutrophils 5.3 thou/uL (1.40-6.50); %Eosinophils 2.9 % (0.0-10.0); %Lymphocytes 30.8 % (21.0-51.0); %Monocytes 4.9 % (0.0-10.0); %Neutrophils 60.4 % (42.0-75.0); Hemoglobin 8.9 g/dL (12.0-16.0); Mean Corpuscular HGB CONC 31.7 g/dL (32.0-36.0); Mean Corpuscular Hemoglobin 23.3 pg (27.0-31.0); Mean Corpuscular Volume 73.6 fl (78.0-98.0); Mean Platelet Volume 9.7 fL (7.4-10.4); Platelet Count 272 10x3/uL (130-400); RBC Distribution Width 16.4 % (11.5-14.5); Red Blood Cell (RBC) Count 3.82 mill/uL (4.20-5.40); White Blood Cell (WBC) Count 8.9 10x3/uL (4.8-10.8)
[2022-11-30 09:29] LABS: BHCG - Serum Negative (NEGATIVE); Pregs Control Background? CLEAR/WHITE (CLR/WHITE); Pregs Control Bar Appear? YES (CONTROL BAR)
[2022-11-30 09:44] LABS: Acetaminophen Less than 10.0 mcg/mL (10.0-30.0); Alcohol Less than 10 mg/dL (Less than 10); Salicylate Less than 8.0 mg/dL (15.0-30.0)
[2022-11-30 09:45] LABS: ALT (SGPT) 10 U/L (8-55); AST (SGOT) 11 U/L (5-34); Albumin 3.9 g/dL (3.5-5.0); Alkaline Phosphatase 74 U/L (40-110); Anion Gap 13 mmol/L (10-20); BUN (Urea Nitrogen) 11 mg/dL (7.0-18.7); Bilirubin, Total 0.2 mg/dL (0.2-1.2); Calc. Creatinine Clearance 0 mL/min (70-130); Calcium 8.3 mg/dL (7.8-10.44); Carbon Dioxide 19 mmol/L (22-29); Chloride 109 mmol/L (98-107); Estimated GFR 101; Globulin 2.9 g/dL (2.4-3.5); Glucose 314 mg/dL (70-105); Lipase 27 U/L (8-78); Magnesium 1.9 mg/dL (1.6-2.6); Potassium 3.9 mmol/L (3.5-5.1); Protein, Total 6.8 g/dL (6.0-8.3); Sodium 137 mmol/L (136-145)
[2022-11-30 09:49] LABS: Hypochromia SLIGHT = 6-15 cells (100X) (0-5/hpf); MDiff Complete? YES; Microcytosis SLIGHT = 6-15 cells (100X) (0-5/hpf); Platelet Morphology Comment Appears Adequate
== END 2022-11-30 10:50 | disposition home or self-care (01) ==
LOC: ERS 08:02
DX: R51.9 Headache, unspecified (principal); E78.00 Pure hypercholesterolemia, unspecified; E10.9 Type 1 diabetes mellitus without complications; E03.9 Hypothyroidism, unspecified; Z79.84 Long term (current) use of oral hypoglycemic drugs; Z79.899 Other long term (current) drug therapy
CPT/HCPCS: 36415; 36416; 71045; 80053; 80307; 83690; 83735; 84443; 84484; 84703; 85025; 96365; 96375; J1885; J2765

== ENCOUNTER 2023-03-03 14:32 | Emergency (ER) | payer OTHER ==
[2023-03-03 17:04] LABS: Bacteria/HPF None Seen HPF (None Seen); Bilirubin Negative (Negative); Blood, Urine Negative (Negative); CAUTI Indications for Culture Dysuria,urgency,freq; Clarity Clear (Clear); Glucose, Urine (Dipstick) Greater than 1000 mg/dL (Negative); Ketone, Urine Negative (Negative); Leukocyte 25 Leu/uL (Negative); Nitrite 2+ (Negative); Protein, Urine (Dipstick) Negative (Neg-Trace); RBC/HPF 0-3 HPF (0-3); Specific Gravity, Urine 1.042 (1.002-1.036); Squamous Epithelial 0-3 HPF (0-3); Urobilinogen Normal mg/dL (Less than 2); pH, Urine 5.5 (5.0-9.0)
[2023-03-03 17:05] LABS: #Basophils 0.1 thou/uL (0.0-0.2); #Eosinphils 0.4 thou/uL (0.0-0.7); #Monocytes 0.5 thou/uL (0.11-0.59); #Neutrophils 7.8 thou/uL (1.40-6.50); %Basophils 0.6 % (0.0-1.0); %Eosinophils 3.2 % (0.0-10.0); %Lymphocytes 18.7 % (21.0-51.0); Hemoglobin 10.9 g/dL (12.0-16.0); Mean Corpuscular HGB CONC 31.2 g/dL (32.0-36.0); Mean Corpuscular Hemoglobin 23.9 pg (27.0-31.0); Mean Corpuscular Volume 76.4 fl (78.0-98.0); Mean Platelet Volume 12.2 fL (7.4-10.4); Platelet Count 286 10x3/uL (130-400); RBC Distribution Width 16.6 % (11.5-14.5); Red Blood Cell (RBC) Count 4.57 mill/uL (4.20-5.40); White Blood Cell (WBC) Count 10.8 10x3/uL (4.8-10.8)
[2023-03-03 17:06] LABS: Urine Culture Reflex No No
[2023-03-03 17:29] LABS: ALT (SGPT) 8 U/L (8-55); AST (SGOT) 12 U/L (5-34); Albumin 4.5 g/dL (3.5-5.0); Alkaline Phosphatase 112 U/L (40-110); Anion Gap 12 mmol/L (10-20); BUN (Urea Nitrogen) 9 mg/dL (7.0-18.7); Bilirubin, Total 0.5 mg/dL (0.2-1.2); Calc. Creatinine Clearance 0 mL/min (70-130); Calcium 9.5 mg/dL (7.8-10.44); Carbon Dioxide 26 mmol/L (22-29); Chloride 100 mmol/L (98-107); Estimated GFR 86; Globulin 3.5 g/dL (2.4-3.5); Glucose 323 mg/dL (70-105); Potassium 3.9 mmol/L (3.5-5.1); Sodium 134 mmol/L (136-145)
[2023-03-03] MEDS ORDERED: predniSONE 20 MG TAB ONE (20:48)
== END 2023-03-03 20:46 | disposition home or self-care (01) ==
LOC: ERS 14:32
DX: J45.909 Unspecified asthma, uncomplicated (principal); E03.9 Hypothyroidism, unspecified; E78.5 Hyperlipidemia, unspecified; E10.9 Type 1 diabetes mellitus without complications; Z79.899 Other long term (current) drug therapy; Z79.4 Long term (current) use of insulin; Z79.84 Long term (current) use of oral hypoglycemic drugs
CPT/HCPCS: 36416; 71045; 80053; 81001; 82010; 85025; 85379; J7512

== ENCOUNTER 2023-05-28 12:49 | Emergency (ER) | payer OTHER, SELFPAY ==
[2023-05-28 13:29] LABS: #Basophils 0.1 thou/uL (0.0-0.2); #Eosinphils 0.3 thou/uL (0.0-0.7); #Monocytes 0.4 thou/uL (0.11-0.59); %Basophils 0.7 % (0.0-1.0); %Eosinophils 3.2 % (0.0-10.0); %Lymphocytes 25.5 % (21.0-51.0); %Neutrophils 66.4 % (42.0-75.0); Hematocrit 36.9 % (36.0-47.0); Hemoglobin 11.2 g/dL (12.0-16.0); Mean Corpuscular HGB CONC 30.4 g/dL (32.0-36.0); Mean Corpuscular Hemoglobin 24.5 pg (27.0-31.0); Mean Corpuscular Volume 80.7 fl (78.0-98.0); Mean Platelet Volume 11.8 fL (7.4-10.4); Platelet Count 308 10x3/uL (130-400); Red Blood Cell (RBC) Count 4.57 mill/uL (4.20-5.40); White Blood Cell (WBC) Count 9.1 10x3/uL (4.8-10.8)
[2023-05-28 13:46] LABS: ALT (SGPT) 7 U/L (8-55); AST (SGOT) 10 U/L (5-34); Albumin 4.1 g/dL (3.5-5.0); Alkaline Phosphatase 71 U/L (40-110); Anion Gap 10 mmol/L (10-20); BUN (Urea Nitrogen) 10 mg/dL (7.0-18.7); Bilirubin, Total 0.3 mg/dL (0.2-1.2); Calc. Creatinine Clearance 0 mL/min (70-130); Calcium 9.1 mg/dL (7.8-10.44); Carbon Dioxide 25 mmol/L (22-29); Chloride 100 mmol/L (98-107); Estimated GFR 91; Globulin 3.2 g/dL (2.4-3.5); Glucose 334 mg/dL (70-105); Lipase 30 U/L (8-78); Potassium 4.6 mmol/L (3.5-5.1); Protein, Total 7.3 g/dL (6.0-8.3); Sodium 130 mmol/L (136-145)
[2023-05-28 13:50] LABS: Troponin I Less than 0.010 ng/mL (< 0.028)
[2023-05-28] MEDS ORDERED: Acetaminophen 500 MG TAB ONE (14:50)
[2023-05-28 15:03] LABS: BHCG - Serum Negative (NEGATIVE); Pregs Control Background? CLEAR/WHITE (CLR/WHITE); Pregs Control Bar Appear? YES (CONTROL BAR)
[2023-05-28 15:14] LABS: Magnesium 1.9 mg/dL (1.6-2.6)
[2023-05-28] MEDS ORDERED: hydrOXYzine 25 MG TAB ONE (16:46)
[2023-05-28] MEDS ORDERED: Ketorolac Tromethamine 30 MG/ML VIAL ONE ×2 (16:46→16:47)
== END 2023-05-28 18:10 | disposition home or self-care (01) ==
LOC: ERS 12:49
DX: E11.65 Type 2 diabetes mellitus with hyperglycemia (principal); F41.9 Anxiety disorder, unspecified; R07.9 Chest pain, unspecified; I10 Essential (primary) hypertension; E03.9 Hypothyroidism, unspecified; E78.5 Hyperlipidemia, unspecified; Z79.899 Other long term (current) drug therapy; Z79.84 Long term (current) use of oral hypoglycemic drugs; Z79.4 Long term (current) use of insulin
CPT/HCPCS: 36415; 71045; 80053; 83690; 83735; 84443; 84484; 84703; 85025; 93005; 94760; 96361; 96374; J1885

== ENCOUNTER 2023-08-27 10:49 | Emergency (ER) | payer OTHER ==
[2023-08-27] MEDS ORDERED: Ketorolac Tromethamine 30 MG/ML VIAL ONE (11:31)
[2023-08-27 13:46] LABS: BHCG - Serum Negative (NEGATIVE); Pregs Control Background? CLEAR/WHITE (CLR/WHITE); Pregs Control Bar Appear? YES (CONTROL BAR)
[2023-08-27] MEDS ORDERED: Morphine 4 MG/ML VIAL ONE (15:00)
== END 2023-08-27 15:55 | disposition home or self-care (01) ==
LOC: ERS 10:49
DX: S22.32XA Fracture of one rib, left side, initial encounter for closed fracture (principal); E10.9 Type 1 diabetes mellitus without complications; E03.9 Hypothyroidism, unspecified; E78.5 Hyperlipidemia, unspecified; I10 Essential (primary) hypertension; Z79.84 Long term (current) use of oral hypoglycemic drugs; Z79.4 Long term (current) use of insulin; Z79.899 Other long term (current) drug therapy; W01.0XXA Fall on same level from slipping, tripping and stumbling without subsequent striking against object, initial encounter
CPT/HCPCS: 36416; 71250; 84703; 93005; 96372; J1885; J2270

== ENCOUNTER 2024-01-28 19:29 | Emergency (ER) | payer BC, OTHER ==
[2024-01-28] MEDS ORDERED: Ondansetron PF 4 MG/2 ML Vial ONE (20:04)
[2024-01-28 20:17] LABS: Bilirubin Negative (Negative); Blood, Urine Small (Negative); Glucose, Urine (Dipstick) >=1000 mg/dL (Negative); Ketone, Urine Negative (Negative); Leukocyte Negative (Negative); Nitrite Positive (Negative); Protein, Urine (Dipstick) Negative (Neg-Trace); Urobilinogen 0.2 mg/dL (Less than 2)
[2024-01-28 20:19] LABS: Bacteria/HPF 4+ HPF (None Seen); CAUTI Indications for Culture Pelvic or flank pain
[2024-01-28 20:23] LABS: #Basophils 0.03 10x3/uL (0.0-0.2); %Basophils 0.4 % (0.0-1.0); %Eosinophils 2.6 % (0.0-10.0); %Lymphocytes 25.2 % (21.0-51.0); %Monocytes 5.7 % (0.0-10.0); %Neutrophils 65.9 % (42.0-75.0); Hematocrit 31.7 % (36.0-47.0); Hemoglobin 10.2 g/dL (12.0-16.0); Mean Corpuscular HGB CONC 32.2 g/dL (32.0-36.0); Mean Corpuscular Hemoglobin 25.3 pg (27.0-31.0); Mean Corpuscular Volume 78.7 fL (78.0-98.0); Mean Platelet Volume 11.7 fL (7.4-10.4); Platelet Count 297 10x3/uL (130-400); RBC Distribution Width 16.1 % (11.5-14.5); Red Blood Cell (RBC) Count 4.03 mill/uL (4.20-5.40)
[2024-01-28 20:24] LABS: Clarity Clear (Clear); Pregnancy Test - Urine (BHCG) Negative (Negative); Pregu Control Background? CLEAR/WHITE (CLR/WHITE); Pregu Control Bar Appear? YES (CONTROL BAR); Specific Gravity 1.037 (1.002-1.036); Specific Gravity, Urine 1.037 (1.002-1.036)
[2024-01-28 20:25] LABS: Urine Culture Reflex No No
[2024-01-28 20:37] LABS: Actual Bicarbonate (HCO3v) 23.8 mEq/L (22-28); Base Excess -2.5 mEq/L (-2.0 to +3.0); Calcium, Ionized (venous) 1.13 mmol/L (1.16-1.32); Chloride (VBG) 98 mmol/L (98-106); Hematocrit-VBG 32 % (36.0-47.0); Hemoglobin (Hb) 10.9 g/dL (11.7-15.5); Potassium (VBG) 4.16 mmol/L (3.70-5.30); Sodium 134 mmol/L (133-146); pH (venous) 7.315 (7.32-7.43)
[2024-01-28 20:58] LABS: ALT (SGPT) 7 U/L (8-55); AST (SGOT) 7 U/L (5-34); Albumin 3.3 g/dL (3.5-5.0); Alkaline Phosphatase 87 U/L (40-110); Anion Gap 15 mmol/L (10-20); BUN (Urea Nitrogen) 10 mg/dL (7.0-18.7); Bilirubin, Total 0.4 mg/dL (0.2-1.2); Calc. Creatinine Clearance 0 mL/min (70-130); Calcium 8.6 mg/dL (7.8-10.44); Carbon Dioxide 24 mmol/L (22-29); Chloride 99 mmol/L (98-107); Estimated GFR 91; Globulin 3.2 g/dL (2.4-3.5); Glucose 546 mg/dL (70-105); Lipase 37 U/L (8-78); Magnesium 1.8 mg/dL (1.6-2.6); Protein, Total 6.5 g/dL (6.0-8.3); Sodium 134 mmol/L (136-145)
[2024-01-28] MEDS ORDERED: Potassium Bicarbonate/Cit Ac 20 MEQ TAB ONE (21:44)
[2024-01-28] MEDS ORDERED: Sulfameth/Trimethoprim DS 800-160mg TAB ONE (21:44)
[2024-01-28] MEDS ORDERED: Insulin Regular 300 UNITS/3 ML VIAL ONE (21:45)
[2024-01-28 22:32] LABS: Actual Bicarbonate (HCO3v) 22.4 mEq/L (22-28); Base Excess -3.5 mEq/L (-2.0 to +3.0); Chloride (VBG) 99 mmol/L (98-106); Hematocrit-VBG 30 % (36.0-47.0); Hemoglobin (Hb) 10.3 g/dL (11.7-15.5); Potassium (VBG) 4.25 mmol/L (3.70-5.30); Sodium 136 mmol/L (133-146); pH (venous) 7.324 (7.32-7.43)
[2024-01-28] MEDS ORDERED: Morphine 4 MG/ML VIAL ONE ×2 (22:34→23:30)
[2024-01-28] MEDS ORDERED: Ketorolac Tromethamine 30 MG (1 mL) VIAL ONE (22:44)
== END 2024-01-29 02:35 | disposition home or self-care (01) ==
LOC: ERS 19:29
DX: N39.0 Urinary tract infection, site not specified (principal); K02.9 Dental caries, unspecified; E10.65 Type 1 diabetes mellitus with hyperglycemia; E86.0 Dehydration; J45.909 Unspecified asthma, uncomplicated; E03.9 Hypothyroidism, unspecified; E78.5 Hyperlipidemia, unspecified
CPT/HCPCS: 36415; 36416; 74177; 76856; 80053; 81001; 81025; 82010; 82550; 82805; 83605; 83690; 83735; 84702; 85025; 93005; 96361; 96374; 96375; J1815; J1885; J2270; J2405

== ENCOUNTER 2024-05-10 11:03 | Outpatient (CLI) | payer BC, OTHER ==
[2024-05-10 12:24] LABS: #Basophils 0.06 10x3/uL (0.0-0.2); %Basophils 0.8 % (0.0-1.0); %Eosinophils 5.4 % (0.0-10.0); %Lymphocytes 30.3 % (21.0-51.0); %Monocytes 6.3 % (0.0-10.0); %Neutrophils 56.8 % (42.0-75.0); Hematocrit 30.1 % (36.0-47.0); Hemoglobin 9.3 g/dL (12.0-16.0); Mean Corpuscular HGB CONC 30.9 g/dL (32.0-36.0); Mean Corpuscular Volume 77.8 fL (78.0-98.0); Mean Platelet Volume 11.3 fL (7.4-10.4); Platelet Count 304 10x3/uL (130-400); Red Blood Cell (RBC) Count 3.87 mill/uL (4.20-5.40)
[2024-05-10 12:35] LABS: BHCG - Serum Negative (NEGATIVE); Pregs Control Background? CLEAR/WHITE (CLR/WHITE); Pregs Control Bar Appear? YES (CONTROL BAR)
[2024-05-10 13:03] LABS: ALT (SGPT) 12 U/L (8-55); AST (SGOT) 12 U/L (5-34); Albumin 3.4 g/dL (3.5-5.0); Alkaline Phosphatase 93 U/L (40-110); Anion Gap 12 mmol/L (10-20); BUN (Urea Nitrogen) 13 mg/dL (7.0-18.7); Bilirubin, Direct 0.1 mg/dL (0.1-0.3); Bilirubin, Total 0.5 mg/dL (0.2-1.2); Calc. Creatinine Clearance 0 mL/min (70-130); Calcium 8.6 mg/dL (7.8-10.44); Carbon Dioxide 23 mmol/L (22-29); Chloride 101 mmol/L (98-107); Estimated GFR 82; Globulin 3.5 g/dL (2.4-3.5); Glucose 549 mg/dL (70-105); Potassium 4.2 mmol/L (3.5-5.1); Protein, Total 6.9 g/dL (6.0-8.3); Sodium 132 mmol/L (136-145)
== END 2024-05-10 11:04 | disposition home or self-care (01) ==
LOC: LABBT 11:03
PROVIDERS: ATTEND Surgery
DX: Z01.818 Encounter for other preprocedural examination (principal); K80.20 Calculus of gallbladder without cholecystitis without obstruction
CPT/HCPCS: 80053; 80076; 84703; 85025; 93005; 93010